=== PATIENT | female | born 1995 | race Caucasian/White ===

== ENCOUNTER 2023-12-12 07:30 | Outpatient (RCR) | payer OTHER, SELFPAY ==
--- NOTE | 2023-04-30 16:00 | OT.OP.EVAL ---
Visit Care Team Role Provider Type Evette Sethi MD Family Provider Non-Staff Primary Care Provider Specialty: Medical Address: [address] [place] [address], [id number] Email: Heriberto Ferrell DO Attending Provider Non-Staff Referring Provider Specialty: Family Practice Address: [address] [place] [address], [id number] Email: Occupational Therapy Initial Evaluation OT Outpatient Adult Evaluation Start: 05/01/23 08:51 Freq: Status: Active Protocol: Document 04/30/23 16:00 AMS (Rec: 05/01/23 09:25 AMS [id number]) General Information - Adult Plan of Care Dates 04/30/23 - 06/25/23 Insurance Information Prime; EVAL ONLY then 12 visits auth Visit Start Time 07:30 Visit Stop Time 08:15 Total Visit Minutes 45 Treatment Setting Outpatient Care Note Type Initial Evaluation Identification Confirmed Yes Identification Confirmed By Self Goals Cotton Presser Goals 1. Elida will be modified independent with execution of home exercise program utilizing provided written and visual instructions from therapist. 2. Elida will present with increased ability to participate in meaningful activities as evidenced by the followina. Elida will obtain a QuickDASH UE Outcome Measure Score of 15.00 or less. 2b. Elida will obtain a QuickDASH UE Work Module Score of 15.00 or less. 2c. Elida will obtain a QuickDASH UE Sports/Performing Arts Module Score of 50.00 or less. 2d. Elida will report ability to execute x 10 push-ups without exacerbation of pain/ discomfort of the right distal UE on 2 separate occasions (2 days per week). Assessment/Plan Treatment Assessment Elida is a 27 year-old right hand dominant female referred to outpatient OT by PCP secondary to recurrent right lateral epicondylitis. 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 Medical history is significant for removal of adenoids (2006), Lung surgery (2017). Elida indicated 1 out of 10 on Pain Assessment Grid relative to right lateral epicondyle --> distally to dorsal R wrist. QuickDASH UE Outcome Measure Score = 25.00; QuickDASH UE Outcome Measure Work Module Score = 25.00; QuickDA UE Outcome Measure Sports/Performing Arts Module Score = 68.75. Elida reported going to Urgent Care in January/ February (2022) d/t inability to move R UE; x-ray was completed and it was negative. She reported being prescribed an anti-inflammatory by Urgent Care and taking the medication for 1 week. She reportedly has iced intermittently; she denied use of tennis elbow band/strap and/or use of kinesiotape. She has a h/o rock climbing, yoga, and completing push-ups or planks (but has ceased these activities d/t aggravation of symptoms). ROM findings were as follows: 0-65 degrees active R wrist flex vs 0-65 degrees active L wrist flex; 0 -65 degrees active R wrist ext vs 0-70 degrees active L wrist ext; 0-20 degrees active R wrist RD vs 0-20 degrees active L wrist RD; 0-30 degrees active R wrist UD vs 0 -25 degrees active L wrist UD. Full bilateral elbow flexion/ extension. MMT testing findings were as follows: 5/5 MMT in all directions bilaterally (wrist flex, ext, RD, UD). Some discomfort reported R dorsal forearm distal to mid forearm --> and proximal approx 3 inches from R wrist w/ resisted wrist extension; did not indicate exacerbation of pain symptoms at R lateral epicondyle w/ supported and/or unsupported R wrist ext. 41.0# R ham curer vs 45 .0# L ham curer w/ dynamometer II testing w/ elbow in 90 degrees flex; 27.0# R ham curer vs 34.0# L ham curer w/ dynamometer II testing w/ elbow in ext. Some tenderness to palpation at R lateral epicondyle; R radial volar wrist tightness. Frequently noted to roll bilateral wrists w/ some crepitus between tasks. Elida would likely benefit from outpatient skilled OT to address pain/discomfort, environmental modifications/ education, and weakness to support Elida's ability to successfully and actively participate in meaningful activities in a variety of environments. Home Exercise Program 04/30/23 = Instructed in passive wrist flex/ext; recommended completing 1 to 2 reps w/ hold of 20 to 30 sec w / elbow in extension. Instructed in passive UD to address radial sided tightness of wrist w/ forearm in supination and elbow in 90 degrees flex based on current comfort. Rec completed 1 to 2 reps w/ hold of 20 to 30 seconds. Length of treatment (weeks) 8 Plan of Care Start Date 04/30/23 Plan of Care End Date 06/25/23 Treatment Frequency Once a Week Therapeutic Contents Active Range of Motion, Adaptive Equipment Education, Client Education,Functional Activities,Home Exercise Program,Joint Protection, Manual Therapy,Education,Self- Care,Stretching/Flexibility Activities,Therapeutic Activities,Therapeutic Exercises,Modalities Modalities As Needed,As Prescribed Additional Types of Modalities US/Heat/Ice/Cold Pack/Contrast baths/Kinesiotape
--- NOTE | 2023-05-07 16:00 | OT.OP.TRT ---
Visit Care Team Role Provider Type Evette Sethi MD Family Provider Non-Staff Primary Care Provider Specialty: Medical Address: [address] [place] [address], [id number] Email: Heriberto Ferrell DO Attending Provider Non-Staff Referring Provider Specialty: Family Practice Address: [address] [place] [address], [id number] Email: Occupational Therapy Treatment Note OT Outpatient Treatment Note - Adult Start: 05/01/23 08:51 Freq: Status: Active Protocol: Document 05/07/23 16:00 [facility] (Rec: 05/08/23 09:00 [facility] [id number]) OT Outpatient Adult Treatment Note Session Time Visit Start Time 07:30 Visit Stop Time 08:15 Total Visit Minutes 45 Visit Information Visit Number 11/02 Plan of Care Dates 04/30/23 - 06/25/23 Insurance Information Prime; EVAL ONLY then 12 visits auth Setting Treatment Setting Outpatient Care Visit Type Note Type Treatment Note General Information General Information Elida is a 27 year-old right hand dominant female referred to outpatient OT by PCP secondary to recurrent right lateral epicondylitis. 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 Medical history is significant for removal of adenoids (2006), Lung surgery (2017). - Subjective Identification Type Name Observations Elida reported participating in Nnamdi previous week; denial of aggravation of symptoms w/ the run. Patient/Caregiver Compliance with Home Good Exercise Program - Objective Objective Measurements Please refer to below for progress towards meeting established OT goals. Sales Forecast Analyst Goals 1. Elida will be modified independent with execution of home exercise program utilizing provided written and visual instructions from therapist. 2. Elida will present with increased ability to participate in meaningful activities as evidenced by the followina. Elida will obtain a QuickDASH UE Outcome Measure Score of 15.00 or less. 2b. Elida will obtain a QuickDASH UE Work Module Score of 15.00 or less. 2c. Elida will obtain a QuickDASH UE Sports/Performing Arts Module Score of 50.00 or less. 2d. Elida will report ability to execute x 10 push-ups without exacerbation of pain/ discomfort of the right distal UE on 2 separate occasions (2 days per week). - Exercises 1 Descriptor Wrist strengthening exercises. 2# DB wrist ext w/ controlled 5 sec descent into wrist flexion. 3 x 10. 2# DB wrist flex. 3 x 10. 2# DB wrist RD. 3 x 10. 2# DB wrist UD. 3 x 10. - Assessment Assessment of Improvement Denial of aggravation of symptoms w/ participation in Nnamdi. Reviewed passive distal UE stretches. US x 8 minutes; 20% duty cycle, 2.0 w /cm2 to address inflammation of extensors. Manual indicates some tightness/tenderness to palpation approx 2 inches distal to lateral epicondyle. Upgraded therapeutic exercises w/ utilization of 2# DB. Instructed in self-distraction technique; discussed importance of avoiding positions of deformity and maintaining neutral positioning of wrist. Overall, good session. Elida would likely benefit from outpatient skilled OT to address pain/discomfort, environmental modifications/ education, and weakness to support Elida's ability to successfully and actively participate in meaningful activities in a variety of environments. Home Exercise Program 05/07/23 = self-distraction technique. - Plan Therapy Recommendations Continue with Current Program, Advance per Rehabilitation Protocol
--- NOTE | 2023-05-14 12:33 | OT.OP.TRT ---
Visit Care Team Role Provider Type Evette Sethi MD Family Provider Non-Staff Primary Care Provider Specialty: Medical Address: [address] [place] [address], [id number] Email: Heriberto Ferrell DO Attending Provider Non-Staff Referring Provider Specialty: Family Practice Address: [address] [place] [address], [id number] Email: Occupational Therapy Treatment Note OT Outpatient Treatment Note - Adult Start: 05/01/23 08:51 Freq: Status: Active Protocol: Document 05/14/23 12:23 AMS (Rec: 05/14/23 12:33 AMS [id number]) OT Outpatient Adult Treatment Note Session Time Visit Start Time 07:35 Visit Stop Time 08:15 Total Visit Minutes 40 Visit Information Visit Number 12/03 Plan of Care Dates 04/30/23 - 06/25/23 Insurance Information Prime; EVAL ONLY then 12 visits auth Setting Treatment Setting Outpatient Care Visit Type Note Type Treatment Note General Information General Information Elida is a 27 year-old right hand dominant female referred to outpatient OT by PCP secondary to recurrent right lateral epicondylitis. 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 Medical history is significant for removal of adenoids (2006), Lung surgery (2017). - Subjective Identification Type Name Observations Reported discomfort of R wrist w/ execution of exercises. Patient/Caregiver Compliance with Home Good Exercise Program - Objective Objective Measurements Please refer to below for progress towards meeting established OT goals. Senior Underwriting Assistant Goals 1. Elida will be modified independent with execution of home exercise program utilizing provided written and visual instructions from therapist. 2. Elida will present with increased ability to participate in meaningful activities as evidenced by the followina. Elida will obtain a QuickDASH UE Outcome Measure Score of 15.00 or less. 2b. Elida will obtain a QuickDASH UE Work Module Score of 15.00 or less. 2c. Elida will obtain a QuickDASH UE Sports/Performing Arts Module Score of 50.00 or less. 2d. Elida will report ability to execute x 10 push-ups without exacerbation of pain/ discomfort of the right distal UE on 2 separate occasions (2 days per week). - Exercises 3 Descriptor WB at wall. Alt arm lift 1 x 5. Walk outs 1 x 5. 2 Descriptor PROM. Use of wall. Elbow in extension. Wrist/digits in extension. 1 Descriptor Wrist strengthening exercises. TB #3 wrist ext. 3 x 15. Elbow supported prox on arm rest. TB #3 wrist flex. 3 x 15. Elbow supported prox on arm rest. TB #[address] 3 x 15. Elbow supported prox on arm rest TB #3 wrist UD. 3 x 15. Use of TT to complete this exercise. - Assessment Assessment of Improvement Introduced wrist strengthening w/ use of TB; provided TB #3 for home utilization. Introduced passive wrist/digit ext at wall as an alt to self -PROM. Also introduced mod weight bearing at wall; modified approach to WB given report of R wrist discomfort and h/o of crepitus/or ' popping' of B elbows and wrists. Overall, good session. Recommend reviewing TB strengthening and utilizing controlled descent from wrist ext; recommend progressing WB exercises as able. Elida would likely benefit from outpatient skilled OT to address pain/discomfort, environmental modifications/ education, and weakness to support Elida's ability to successfully and actively participate in meaningful activities in a variety of environments. Home Exercise Program 05/14/23 = Instructed in use of wall as an alternative to for elbow ext combined w/ forearm supination and wrist/digit ext. Rec 20 to 30 sec hold. Provided w/ TB #3 for home use for wrist strengthening; recommended 3 x 15 reps w/ wrist ext, wrist flex, wrist UD, wrist RD. Instructed in strengthening into wrist UD w/ loop of TB at TT. Discussed potential use of PVC pipe for self-made 'handle'. Instructed in walk-outs w/ use of wall for modified WB; other option to stabilize feet w/ alt UE WB at wall. 05/07/23 = Self-distraction technique. - Plan Therapy Recommendations Continue with Current Program, Advance per Rehabilitation Protocol
--- NOTE | 2023-05-21 14:28 | OT.OP.TRT ---
Visit Care Team Role Provider Type Evette Sethi MD Family Provider Non-Staff Primary Care Provider Specialty: Medical Address: [address] [place] [address], [id number] Email: Heriberto Ferrell DO Attending Provider Non-Staff Referring Provider Specialty: Family Practice Address: [address] [place] [address], [id number] Email: Occupational Therapy Treatment Note OT Outpatient Treatment Note - Adult Start: 05/01/23 08:51 Freq: Status: Active Protocol: Document 05/21/23 14:14 AMS (Rec: 05/21/23 14:28 AMS [id number]) OT Outpatient Adult Treatment Note Session Time Visit Start Time 09:45 Visit Stop Time 08:15 Total Visit Minutes 30 Visit Information Visit Number 12/31 Plan of Care Dates 04/30/23 - 06/25/23 Insurance Information Prime; EVAL ONLY then 12 visits auth Setting Treatment Setting Outpatient Care Visit Type Note Type Treatment Note General Information General Information Elida is a 27 year-old right hand dominant female referred to outpatient OT by PCP secondary to recurrent right lateral epicondylitis. 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 Medical history is significant for removal of adenoids (2006), Lung surgery (2017). - Subjective Identification Type Name Observations Reported discomfort of R elbow /dorsal forearm discomfort ( evening - last Sunday). Patient/Caregiver Compliance with Home Good Exercise Program - Objective Objective Measurements Please refer to below for progress towards meeting established OT goals. Wire Spring Relay Adjuster Goals 1. Elida will be modified independent with execution of home exercise program utilizing provided written and visual instructions from therapist. 2. Elida will present with increased ability to participate in meaningful activities as evidenced by the followina. Elida will obtain a QuickDASH UE Outcome Measure Score of 15.00 or less. 2b. Elida will obtain a QuickDASH UE Work Module Score of 15.00 or less. 2c. Elida will obtain a QuickDASH UE Sports/Performing Arts Module Score of 50.00 or less. 2d. Elida will report ability to execute x 10 push-ups without exacerbation of pain/ discomfort of the right distal UE on 2 separate occasions (2 days per week). - Treatment 1 Descriptor Manual therapy. Addressing dorsal R forearm elbow extensors. Exercises 3 Descriptor WB at wall. Alt arm lift 1 x 5. Walk outs 1 x 5. 2 Descriptor PROM. Use of wall. Elbow in extension. Wrist/digits in extension. 1 Descriptor Wrist strengthening exercises. TB #3 wrist ext. 3 x 15. Elbow supported prox on arm rest. TB #3 wrist flex. 3 x 15. Elbow supported prox on arm rest. TB #[address] 3 x 15. Elbow supported prox on arm rest TB #3 wrist UD. 3 x 15. Use of TT to complete this exercise. - Assessment Assessment of Improvement Elida reported R elbow/R dorsal forearm tenderness last Sunday evening (05/14/23); this is the evening post- last treatment session in the clinic. Thus, focused on manual treatment, addressing right wrist extensors. Reviewed stretches; report of discomfort w/ addition of passive UD w/ wrist/digit ext combined w/ elbow ext and forearm supination and passive RD w/ elbow ext/forearm pronation w/ hand positioned on TT. Thus, recommended completing distal UE stretches without combination of wrist RD or UD. Reviewed frequency of treatment w/ recommended exercises. Elida would likely benefit from outpatient skilled OT to address pain/discomfort, environmental modifications/ education, and weakness to support Elida's ability to successfully and actively participate in meaningful activities in a variety of environments. Home Exercise Program 05/21/23 = Complete exercises 3 x a week, or every other day. 05/14/23 = Instructed in use of wall as an alternative to for elbow ext combined w/ forearm supination and wrist/digit ext. Rec 20 to 30 sec hold. Provided w/ TB #3 for home use for wrist strengthening; recommended 3 x 15 reps w/ wrist ext, wrist flex, wrist UD, wrist RD. Instructed in strengthening into wrist UD w/ loop of TB at TT. Discussed potential use of PVC pipe for self-made 'handle'. Instructed in walk-outs w/ use of wall for modified WB; other option to stabilize feet w/ alt UE WB at wall. 05/07/23 = Self-distraction technique. - Plan Therapy Recommendations Continue with Current Program, Advance per Rehabilitation Protocol
--- NOTE | 2023-05-28 15:24 | OT.OP.TRT ---
Visit Care Team Role Provider Type Evette Sethi MD Family Provider Non-Staff Primary Care Provider Specialty: Medical Address: [address] [place] [address], [phone] Email: Heriberto eFrrell DO Attending Provider Non-Staff Referring Provider Specialty: Family Practice Address: [address] [place] [address], [phone] Email: Occupational Therapy Treatment Note OT Outpatient Treatment Note - Adult Start: 05/01/23 08:51 Freq: Status: Active Protocol: Document 05/28/23 15:16 AMS (Rec: 05/28/23 15:23 AMS [id number]) OT Outpatient Adult Treatment Note Session Time Visit Start Time 07:37 Visit Stop Time 08:15 Total Visit Minutes 37 Visit Information Visit Number 01/31 Plan of Care Dates 04/30/23 - 06/25/23 Insurance Information Prime; EVAL ONLY then 12 visits auth Setting Treatment Setting Outpatient Care Visit Type Note Type Treatment Note General Information General Information Elida is a 28 year-old right hand dominant female referred to outpatient OT by PCP secondary to recurrent right lateral epicondylitis. 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 Medical history is significant for removal of adenoids (2006), Lung surgery (2017). - Subjective Identification Type Name Observations Denial of any pain/discomfort; report of engaging in yoga 1 x a week. Avoiding push-ups and planks. Patient/Caregiver Compliance with Home Good Exercise Program - Objective Objective Measurements Please refer to below for progress towards meeting established OT goals. Space Buyer Goals 1. Elida will be modified independent with execution of home exercise program utilizing provided written and visual instructions from therapist. 2. Elida will present with increased ability to participate in meaningful activities as evidenced by the followina. Elida will obtain a QuickDASH UE Outcome Measure Score of 15.00 or less. 2b. Elida will obtain a QuickDASH UE Work Module Score of 15.00 or less. 2c. Elida will obtain a QuickDASH UE Sports/Performing Arts Module Score of 50.00 or less. 2d. Elida will report ability to execute x 10 push-ups without exacerbation of pain/ discomfort of the right distal UE on 2 separate occasions (2 days per week). - Treatment 1 Descriptor Manual therapy. Addressing dorsal R forearm elbow extensors. Exercises 4 Descriptor Modified push-ups. Wall push-ups. Discussion re: positioning of hands on wall/ wrist position(s), as well as maintaining midline. 3 x 5 reps. Elbows tucked in 2 sets; T push-up 1 set. 2 Descriptor PROM. Use of wall. Elbow in extension. Wrist/digits in extension. 1 Descriptor Wrist strengthening exercises. TB #3 wrist ext. 3 x 15. Elbow supported prox on arm rest. TB #3 wrist flex. 3 x 15. Elbow supported prox on arm rest. TB #[address] 3 x 15. Elbow supported prox on arm rest TB #3 wrist UD. 3 x 15. Use of TT to complete this exercise. Wrist extension w/ use of dowel and elbows in 90 degrees flexion. 4# DB. 3 cycles. - Assessment Assessment of Improvement Report of engaging in yoga 1 x a week w/ only discomfort w/ upward dog; avoiding planks/ push-ups and modifying exercises. Upgraded ther ex in treatment session (introduced wall push-ups and use of dowel w/ dumbbell for strengthening). Discussion re: positioning of hands/wrists on wall w/ recommendation to complete 3 sets of 5 reps every other day (modified push -ups); discussion on making sure at midline w/ lifting of L leg to discourage reliance on L UE. Elida would likely benefit from outpatient skilled OT to address pain/discomfort, environmental modifications/ education, and weakness to support Elida's ability to successfully and actively participate in meaningful activities in a variety of environments. Home Exercise Program 05/28/23 = Every other day; modified wall push-ups. 3 x 5 reps. 05/21/23 = Complete exercises 3 x a week, or every other day. 05/14/23 = Instructed in use of wall as an alternative to for elbow ext combined w/ forearm supination and wrist/digit ext. Rec 20 to 30 sec hold. Provided w/ TB #3 for home use for wrist strengthening; recommended 3 x 15 reps w/ wrist ext, wrist flex, wrist UD, wrist RD. Instructed in strengthening into wrist UD w/ loop of TB at TT. Discussed potential use of PVC pipe for self-made 'handle'. Instructed in walk-outs w/ use of wall for modified WB; other option to stabilize feet w/ alt UE WB at wall. 05/07/23 = Self-distraction technique. - Plan Therapy Recommendations Continue with Current Program, Advance per Rehabilitation Protocol
--- NOTE | 2023-06-04 09:54 | OT.OP.TRT ---
Visit Care Team Role Provider Type Evette Sethi MD Family Provider Non-Staff Primary Care Provider Specialty: Medical Address: [address] [place] [address], [id number] Email: Heriberto Ferrell DO Attending Provider Non-Staff Referring Provider Specialty: Family Practice Address: [address] [place] [address], [id number] Email: Occupational Therapy Treatment Note OT Outpatient Treatment Note - Adult Start: 05/01/23 08:51 Freq: Status: Active Protocol: Document 06/04/23 09:48 AMS (Rec: 06/04/23 09:54 AMS [id number]) OT Outpatient Adult Treatment Note Session Time Visit Start Time 08:45 Visit Stop Time 09:15 Total Visit Minutes 30 Visit Information Visit Number 03/02 Plan of Care Dates 04/30/23 - 06/25/23 Insurance Information Prime; EVAL ONLY then 12 visits auth Setting Treatment Setting Outpatient Care Visit Type Note Type Treatment Note General Information General Information Elida is a 28 year-old right hand dominant female referred to outpatient OT by PCP secondary to recurrent right lateral epicondylitis. 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 Medical history is significant for removal of adenoids (2006), Lung surgery (2017). - Subjective Identification Type Name Identification Reconciled With Medical Record Observations Report of irritation of R elbow w/ driving; report of discomfort in R elbow w/ slight elbow flexion w/ walk- outs at TT. Patient/Caregiver Compliance with Home Good Exercise Program - Objective Objective Measurements Please refer to below for progress towards meeting established OT goals. Fdc Goals 1. Elida will be modified independent with execution of home exercise program utilizing provided written and visual instructions from therapist. 2. Elida will present with increased ability to participate in meaningful activities as evidenced by the followina. Elida will obtain a QuickDASH UE Outcome Measure Score of 15.00 or less. 2b. Elida will obtain a QuickDASH UE Work Module Score of 15.00 or less. 2c. Elida will obtain a QuickDASH UE Sports/Performing Arts Module Score of 50.00 or less. 2d. Elida will report ability to execute x 10 push-ups without exacerbation of pain/ discomfort of the right distal UE on 2 separate occasions (2 days per week). - Treatment 1 Descriptor Manual therapy. Addressing dorsal R forearm elbow extensors. Exercises 4 Descriptor Modified weight bearing; progressing to push-ups and planks. Wall push-ups. Discussion re: positioning of hands on wall/ wrist position(s), as well as maintaining midline. 3 x 10 reps. Elbows tucked in 3 sets. Table walk-outs. Hands positioned shoulder width apart on TT. 3 x 5. Exacerbation of R elbow sx w/ slight elbow flex. 1 Descriptor Wrist strengthening exercises. TB #3 wrist ext. 3 x 15. Elbow supported prox on arm rest. TB #3 wrist flex. 3 x 15. Elbow supported prox on arm rest. TB #[address] 3 x 15. Elbow supported prox on arm rest TB #3 wrist UD. 3 x 15. Use of TT to complete this exercise. N/A 06/04/23 Wrist extension w/ use of dowel and elbows in 90 degrees flexion. 4# DB. 3 cycles. - Assessment Assessment of Improvement Upgraded ther ex in treatment session; increased to 3 x 10 of wall push-ups w/ elbows tucked in and introduced modified planks w/ TT. Report of exacerbation of R elbow pain/discomfort w/ slight bilateral elbow flexion (R exacerbated) w/ TT walk-outs. Report of execution of planks w/ bilateral elbows flexed to 90 degrees. Will need to modify to support return to exercise. Elida would likely benefit from outpatient skilled OT to address pain/discomfort, environmental modifications/ education, and weakness to support Elida's ability to successfully and actively participate in meaningful activities in a variety of environments. Home Exercise Program 05/28/23 = Every other day; modified wall push-ups. 3 x 5 reps. 05/21/23 = Complete exercises 3 x a week, or every other day. 05/14/23 = Instructed in use of wall as an alternative to for elbow ext combined w/ forearm supination and wrist/digit ext. Rec 20 to 30 sec hold. Provided w/ TB #3 for home use for wrist strengthening; recommended 3 x 15 reps w/ wrist ext, wrist flex, wrist UD, wrist RD. Instructed in strengthening into wrist UD w/ loop of TB at TT. Discussed potential use of PVC pipe for self-made 'handle'. Instructed in walk-outs w/ use of wall for modified WB; other option to stabilize feet w/ alt UE WB at wall. 05/07/23 = Self-distraction technique. - Plan Therapy Recommendations Continue with Current Program, Advance per Rehabilitation Protocol Additional Therapy Recommendations Cx of last 2 scheduled appts; schedule changing
--- NOTE | 2023-06-12 14:31 | OT.OPPN ---
Current Diagnoses Lateral epicondylitis, right elbow (06/12/23) Weakness (06/12/23) OT Progress Note OT Outpatient Treatment Note - Adult Start: 05/01/23 08:51 Freq: Status: Active Protocol: Document 06/12/23 14:22 AMS (Rec: 06/12/23 14:31 AMS [id number]) OT Outpatient Adult Treatment Note Session Time Visit Start Time 13:25 Visit Stop Time 14:00 Total Visit Minutes 35 Visit Information Visit Number 04/02 Plan of Care Dates 06/12/23 - 07/17/23 Insurance Information Prime; EVAL ONLY then 12 visits auth Setting Treatment Setting Outpatient Care Visit Type Note Type Progress Note General Information General Information Elida is a 28 year-old right hand dominant female referred to outpatient OT by PCP secondary to recurrent right lateral epicondylitis. 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 Medical history is significant for removal of adenoids (2006), Lung surgery (2017). - Subjective Identification Type Name Identification Reconciled With Medical Record Observations Elida completed Pain Assessment Grid and indicated 0 out of 10. However, she has still been unable to return to floor level push-ups. Patient/Caregiver Compliance with Home Good Exercise Program - Objective Objective Measurements Please refer to below for progress towards meeting established OT goals. Halfway Goals 1. Elida will be modified independent with execution of home exercise program utilizing provided written and visual instructions from therapist. 2. Elida will present with increased ability to participate in meaningful activities as evidenced by the followina. Elida will obtain a QuickDASH UE Outcome Measure Score of 15.00 or less. 2b. Elida will obtain a QuickDASH UE Work Module Score of 15.00 or less. 2c. Elida will obtain a QuickDASH UE Sports/Performing Arts Module Score of 50.00 or less. 2d. Eliad will report ability to execute x 10 push-ups without exacerbation of pain/ discomfort of the right distal UE on 2 separate occasions (2 days per week). - Treatment 1 Descriptor Manual therapy. Addressing dorsal R forearm elbow extensors. Exercises 1 Descriptor Wrist strengthening exercises. TB #3 wrist ext. 3 x 15. Elbow extended. TB #3 wrist flex. 3 x 15. Elbow extended. TB #[address] 3 x 15. Elbow extended. TB #3 wrist ext. 3 x 15. Elbow supported prox on arm rest. TB #3 wrist flex. 3 x 15. Elbow supported prox on arm rest. TB #[address] 3 x 15. Elbow supported prox on arm rest. TB #3 wrist UD. 3 x 15. Use of TT to complete this exercise. Elbow extended. N/A 06/04/23 Wrist extension w/ use of dowel and elbows in 90 degrees flexion. 4# DB. 3 cycles. - Assessment Assessment of Improvement Elida has made some progress with outpatient OT over the last certification period; she is presenting with a reduction in pain/discomfort ( reduced from 1 --> 0/no pain) and therapist has been able to advance therapeutic exercises /activities completed in treatment session and home exercise program. Despite ability to progress exercises/ activities, Elida has still been unable to complete push- ups at floor level and is currently executing a modified version at the wall. Thus, continued outpatient OT is recommended to support Elida's return to meaningful activities, including planks/ floor push-ups. Based on feedback from outpatient clinic insurance special agent, Elida was notified of need to contact PCP to request new insurance authorization. Home Exercise Program 06/12/23 = Wrist exercises w/ elbow extended. 3 x 15 reps. 05/28/23 = Every other day; modified wall push-ups. 3 x 5 reps. 05/21/23 = Complete exercises 3 x a week, or every other day. 05/14/23 = Instructed in use of wall as an alternative to for elbow ext combined w/ forearm supination and wrist/digit ext. Rec 20 to 30 sec hold. Provided w/ TB #3 for home use for wrist strengthening; recommended 3 x 15 reps w/ wrist ext, wrist flex, wrist UD, wrist RD. Instructed in strengthening into wrist UD w/ loop of TB at TT. Discussed potential use of PVC pipe for self-made 'handle'. Instructed in walk-outs w/ use of wall for modified WB; other option to stabilize feet w/ alt UE WB at wall. 05/07/23 = Self-distraction technique. - Plan Comment 5 weeks Frequency of Treatment Once a Week Therapeutic Contents Active Range of Motion, Adaptive Equipment Education, Client Education,Functional Activities,Home Exercise Program,Joint Protection, Manual Therapy,Education, Neurodevelopment Treatment, Neuromuscular Re-Education, Self-Care,Therapeutic Activities,Therapeutic Exercises,Modalities Modalities As Needed,As Prescribed Additional Types of Modalities Heat/Ice/Paraffin/Ultrasound If you are in agreement with this Plan of Care, please return a signed and dated copy. I have reviewed this Plan of Care and certify that the skilled therapy services above are required to meet the patient?s needs. Physician Signature Date Printed Name and Credentials Clinical Instructor Signature Printed Name and Credentials
--- NOTE | 2023-07-25 11:05 | OT.OPPOC ---
Physical, Occupational & Speech Therapy At [facility] Elida Roth [id number] 1995 Visit Care Team Role Provider Type Evette Sethi MD Family Provider Non-Staff Primary Care Provider Address: [address] [place] [address], [id number] Heriberto Ferrell DO Attending Provider Non-Staff Referring Provider Address: [address] [place] [address], [id number] Occupational Therapy Plan of Care OT Outpatient Adult Evaluation Start: 05/01/23 08:51 Freq: Status: Active Protocol: Document 04/30/23 16:00 AMS (Rec: 05/01/23 09:25 AMS [id number]) General Information - Adult Visit Information Plan of Care Dates 04/30/23 - 06/25/23 Insurance Information Prime; EVAL ONLY then 12 visits auth Session Time Visit Start Time 07:30 Visit Stop Time 08:15 Total Visit Minutes 45 Setting Treatment Setting Outpatient Care Visit Type Note Type Initial Evaluation Identification Identification Confirmed Yes Identification Confirmed By Self Goals [employer] Goals Intermediate Goals 1. Elida will be modified independent with execution of home exercise program utilizing provided written and visual instructions from therapist. 2. Elida will present with increased ability to participate in meaningful activities as evidenced by the followina. Elida will obtain a QuickDASH UE Outcome Measure Score of 15.00 or less. 2b. Elida will obtain a QuickDASH UE Work Module Score of 15.00 or less. 2c. Elida will obtain a QuickDASH UE Sports/Performing Arts Module Score of 50.00 or less. 2d. Elida will report ability to execute x 10 push-ups without exacerbation of pain/ discomfort of the right distal UE on 2 separate occasions (2 days per week). Assessment/Plan Assessment Treatment Assessment Elida is a 27 year-old right hand dominant female referred to outpatient OT by PCP secondary to recurrent right lateral epicondylitis. 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 Medical history is significant for removal of adenoids (2006), Lung surgery (2017). Elida indicated 1 out of 10 on Pain Assessment Grid relative to right lateral epicondyle --> distally to dorsal R wrist. QuickDASH UE Outcome Measure Score = 25.00; QuickDASH UE Outcome Measure Work Module Score = 25.00; QuickDASH UE Outcome Measure Sports/Performing Arts Module Score = 68.75. Elida reported going to Urgent Care in February (2022) d/t inability to move R UE; x-ray was completed and it was negative. She reported being prescribed an anti-inflammatory by Urgent Care and taking the medication for 1 week. She reportedly has iced intermittently; she denied use of tennis elbow band/strap and/or use of kinesiotape. She has a h/o rock climbing, yoga, and completing push-ups or planks (but has ceased these activities d/t aggravation of symptoms). ROM findings were as follows: 0-65 degrees active R wrist flex vs 0-65 degrees active L wrist flex; 0 -65 degrees active R wrist ext vs 0-70 degrees active L wrist ext; 0-20 degrees active R wrist RD vs 0-20 degrees active L wrist RD; 0-30 degrees active R wrist UD vs 0 -25 degrees active L wrist UD. Full bilateral elbow flexion/ extension. MMT testing findings were as follows: 5/5 MMT in all directions bilaterally (wrist flex, ext, RD, UD). Some discomfort reported R dorsal forearm distal to mid forearm --> and proximal approx 3 inches from R wrist w/ resisted wrist extension; did not indicate exacerbation of pain symptoms at R lateral epicondyle w/ supported and/or unsupported R wrist ext. 41.0# R picture painter vs 45 .0# L picture painter w/ dynamometer II testing w/ elbow in 90 degrees flex; 27.0# R picture painter vs 34.0# L picture painter w/ dynamometer II testing w/ elbow in ext. Some tenderness to palpation at R lateral epicondyle; R radial volar wrist tightness. Frequently noted to roll bilateral wrists w/ some crepitus between tasks. Elida would likely benefit from outpatient skilled OT to address pain/discomfort, environmental modifications/ education, and weakness to support Elida's ability to successfully and actively participate in meaningful activities in a variety of environments. Home Exercise Program 7/10/23 = Instructed in passive wrist flex/ext; recommended completing 1 to 2 reps w/ hold of 20 to 30 sec w / elbow in extension. Instructed in passive UD to address radial sided tightness of wrist w/ forearm in supination and elbow in 90 degrees flex based on current comfort. Rec completed 1 to 2 reps w/ hold of 20 to 30 seconds. Plan Length of treatment (weeks) 8 Plan of Care Start Date 04/30/23 Plan of Care End Date 06/25/23 Treatment Frequency Once a Week Therapeutic Contents Active Range of Motion, Adaptive Equipment Education, Client Education,Functional Activities,Home Exercise Program,Joint Protection, Manual Therapy,Education,Self- Care,Stretching/Flexibility Activities,Therapeutic Activities,Therapeutic Exercises,Modalities Modalities As Needed,As Prescribed Additional Types of Modalities US/Heat/Ice/Cold Pack/Contrast baths/Kinesiotape Functional Wrist/Hand Scan Hand Side Sensory Assessment Sensory Profile2 OT Outpatient Treatment Note - Adult Start: 05/01/23 08:51 Freq: Status: Active Protocol: Document 07/25/23 10:52 AMS (Rec: 07/25/23 11:05 AMS [id number]) OT Outpatient Adult Treatment Note Session Time Visit Start Time 07:35 Visit Stop Time 08:15 Total Visit Minutes 40 Visit Information Visit Number 05/02 Plan of Care Dates 07/17/23 - 08/28/23 Insurance Information Prime; EVAL ONLY then 12 visits auth Setting Treatment Setting Outpatient Care Visit Type Note Type Progress Note General Information General Information Elida is a 28 year-old right hand dominant female referred to outpatient OT by PCP secondary to recurrent right lateral epicondylitis. 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 Medical history is significant for removal of adenoids (2006), Lung surgery (2017). - Subjective Identification Type Name Identification Reconciled With Medical Record Observations Elida reported that she is still unable to do floor push- ups and most recently, completed wall push-ups w/ aggravation of symptoms previous Sunday, 07/20. 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 She reported that she primarily utilizes grading pens which do not have any resistance when applied to paper. Patient/Caregiver Compliance with Home Good Exercise Program - Objective Objective Measurements Please refer to below for progress towards meeting established OT goals. Intermediate Goals 1. Elida will be modified independent with execution of home exercise program utilizing provided written and visual instructions from therapist. 2. Elida will present with increased ability to participate in meaningful activities as evidenced by the followina. Elida will obtain a QuickDASH UE Outcome Measure Score of 15.00 or less. 2b. Elida will obtain a QuickDASH UE Work Module Score of 15.00 or less. 2c. Elida will obtain a QuickDASH UE Sports/Performing Arts Module Score of 50.00 or less. 2d. Elida will report ability to execute x 10 push-ups without exacerbation of pain/ discomfort of the right distal UE on 2 separate occasions (2 days per week). - Exercises 4 Descriptor Modified weight bearing; progressing to push-ups and planks. Wall push-ups. Discussion re: positioning of hands on wall/ wrist position(s), as well as maintaining midline. 3 x 10 reps. Elbows tucked in 3 sets. Table walk-outs. Hands positioned shoulder width apart on TT. 3 x 5. Exacerbation of R elbow sx w/ slight elbow flex. 2 Descriptor Wrist ext w/ TT tap -> elbow flex w/ wrist ext w/ use of 2. 2# weighted spherical ball. 2 x 15 repetitions. 1 Descriptor Wrist strengthening exercises. TB #2 wrist ext. 3 x 15. Elbow supported prox on arm rest. TB #2 wrist flex. 3 x 15. Elbow supported prox on arm rest. TB #[address] 3 x 15. Elbow supported prox on arm rest. TB #2 wrist UD. 3 x 15. Use of TT to complete this exercise. Elbow extended. N/A 07/25/23 TB #3 wrist ext. 3 x 15. Elbow extended. TB #3 wrist flex. 3 x 15. Elbow extended. TB #[address] 3 x 15. Elbow extended. N/A 06/04/23 Wrist extension w/ use of dowel and elbows in 90 degrees flexion. 4# DB. 3 cycles. - Assessment Assessment of Improvement Elida did not make progress over this last certification period; break in treatment occurred. There was a decline and need for reduction of resistance w/ wrist strengthening exercises; TB#2 was provided and recommended for execution of home exercise program vs utilization of TB #3. Thus, continued outpatient OT is recommended to support Elida's return to meaningful activities, including planks/ floor push-ups. Home Exercise Program 07/25/23 = Provision of TB #2 was provided. Rec for use w/ wrist strengthening exercises. Rec trialing incline/slant board w/ written task completion. 06/12/23 = Wrist exercises w/ elbow extended. 3 x 15 reps. 05/28/23 = Every other day; modified wall push-ups. 3 x 5 reps. 05/21/23 = Complete exercises 3 x a week, or every other day. 05/14/23 = Instructed in use of wall as an alternative to for elbow ext combined w/ forearm supination and wrist/digit ext. Rec 20 to 30 sec hold. Provided w/ TB #3 for home use for wrist strengthening; recommended 3 x 15 reps w/ wrist ext, wrist flex, wrist UD, wrist RD. Instructed in strengthening into wrist UD w/ loop of TB at TT. Discussed potential use of PVC pipe for self-made 'handle'. Instructed in walk-outs w/ use of wall for modified WB; other option to stabilize feet w/ alt UE WB at wall. 05/07/23 = Self-distraction technique. - Plan Comment 6 weeks Frequency of Treatment Once a Week Therapeutic Contents Active Range of Motion, Adaptive Equipment Education, Client Education,Functional Activities,Home Exercise Program,Joint Protection, Manual Therapy,Education, Neurodevelopment Treatment, Neuromuscular Re-Education, Self-Care,Therapeutic Activities,Therapeutic Exercises,Modalities Modalities As Needed,As Prescribed Additional Types of Modalities Heat/Ice/Paraffin/Ultrasound Electronically Signed by: Diana Huntley OT 07/25/23 4923 If you are in agreement with this Plan of Care, please return a signed and dated copy. I have reviewed this Plan of Care and certify that the skilled therapy services above are required to meet the patient?s needs. Physician Signature Date Printed Name and Credentials Clinical Instructor Signature Printed Name and Credentials
--- NOTE | 2023-08-01 08:19 | OT.OP.TRT ---
Visit Care Team Role Provider Type Evette Sethi MD Family Provider Non-Staff Primary Care Provider Specialty: Medical Address: [address] [place] [address], [id number] Email: Heriberto Ferrell DO Attending Provider Non-Staff Referring Provider Specialty: Family Practice Address: [address] [place] [address], [id number] Email: Occupational Therapy Treatment Note OT Outpatient Treatment Note - Adult Start: 05/01/23 08:51 Freq: Status: Active Protocol: Document 08/01/23 08:11 AMS (Rec: 08/01/23 08:19 AMS [id number]) OT Outpatient Adult Treatment Note Session Time Visit Start Time 07:30 Visit Stop Time 08:10 Total Visit Minutes 40 Visit Information Visit Number 06/02 Plan of Care Dates 07/17/23 - 08/28/23 Insurance Information Prime; EVAL ONLY then 12 visits auth Setting Treatment Setting Outpatient Care Visit Type Note Type Treatment Note General Information General Information Elida is a 28 year-old right hand dominant female referred to outpatient OT by PCP secondary to recurrent right lateral epicondylitis. 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 Medical history is significant for removal of adenoids (2006), Lung surgery (2017). - Subjective Identification Type Name Identification Reconciled With Medical Record Observations Elida reported that she has not tried wall push-ups. Elida reported that she was given a wrist brace to wear at night; based on description, brace was intended to discourage compression of the median nerve w/ wrist flexion and she stopped wearing it given discomfort and ability to utilize pillow to position UE at night when sleeping. Patient/Caregiver Compliance with Home Good Exercise Program - Objective Objective Measurements Please refer to below for progress towards meeting established OT goals. Assisted Goals 1. Elida will be modified independent with execution of home exercise program utilizing provided written and visual instructions from therapist. 2. Elida will present with increased ability to participate in meaningful activities as evidenced by the followina. Elida will obtain a QuickDASH UE Outcome Measure Score of 15.00 or less. 2b. Elida will obtain a QuickDASH UE Work Module Score of 15.00 or less. 2c. Elida will obtain a QuickDA UE Sports/Performing Arts Module Score of 50.00 or less. 2d. Elida will report ability to execute x 10 push-ups without exacerbation of pain/ discomfort of the right distal UE on 2 separate occasions (2 days per week). - Exercises 4 Descriptor Passive wrist stretches. Elbow ext w/ forearm supination w/ wrist ext and elbow ext w/ forearm pronation w/ wrist flex. Hold 20 sec. x 1 rep each exercise. Elbow near full ext w/ passive wrist RD/UD. Hold 20 sec. x 1 rep each exercise. 3 Descriptor Wrist stabilization exercises. Weight shift L <-> R at wall. 1 x 10. Modified wall push-ups. Decreased range of motion. 3 x 10. 2 Descriptor Wrist strengthening exercises. Wrist ext w/ TT tap -> elbow flex w/ wrist ext w/ use of 2. 2# weighted spherical ball. 3 x 15 reps. Underhand catch. 2.2# weighted spherical ball. 3 x 15 reps. Overhand catch. 2.2# weighted spherical ball. 3 x 15 reps. Alt underhand/overhand catch. 2.2# weighted spherical ball. 3 x 15 reps. 1 Descriptor Wrist strengthening exercises. TB #2 wrist ext. 3 x 15. Elbow supported prox on arm rest. TB #2 wrist flex. 3 x 15. Elbow supported prox on arm rest. TB #[address] 3 x 15. Elbow supported prox on arm rest. TB #2 wrist UD. 3 x 15. Use of TT to complete this exercise. Elbow extended. N/A 07/25/23 TB #3 wrist ext. 3 x 15. Elbow extended. TB #3 wrist flex. 3 x 15. Elbow extended. TB #[address] 3 x 15. Elbow extended. N/A 06/04/23 Wrist extension w/ use of dowel and elbows in 90 degrees flexion. 4# DB. 3 cycles. - Assessment Assessment of Improvement Modified wall push-ups to reduce active elbow range of motion; able to tolerate 3 x 10 without c/o pain/discomfort . Elida reported using pillow to support distal UE; has R wrist brace available at home for use. Will utilize w/ writing tasks. Continued outpatient OT is recommended to support Elida's return to meaningful activities, including planks/ floor push-ups. Home Exercise Program 08/01/23 = Trial use of wrist brace w/ written tasks; reduce amount of ROM w/ wall push- ups and avoid locking into extension. 07/25/23 = Provision of TB #2 was provided. Rec for use w/ wrist strengthening exercises. Rec trialing incline/slant board w/ written task completion. 06/12/23 = Wrist exercises w/ elbow extended. 3 x 15 reps. 05/28/23 = Every other day; modified wall push-ups. 3 x 5 reps. 05/21/23 = Complete exercises 3 x a week, or every other day. 05/14/23 = Instructed in use of wall as an alternative to for elbow ext combined w/ forearm supination and wrist/digit ext. Rec 20 to 30 sec hold. Provided w/ TB #3 for home use for wrist strengthening; recommended 3 x 15 reps w/ wrist ext, wrist flex, wrist UD, wrist RD. Instructed in strengthening into wrist UD w/ loop of TB at TT. Discussed potential use of PVC pipe for self-made 'handle'. Instructed in walk-outs w/ use of wall for modified WB; other option to stabilize feet w/ alt UE WB at wall. 05/07/23 = Self-distraction technique. - Plan Therapy Recommendations Continue with Current Program, Advance per Rehabilitation Protocol
--- NOTE | 2023-08-08 11:46 | OT.OP.TRT ---
Visit Care Team Role Provider Type Evette Sethi MD Family Provider Non-Staff Primary Care Provider Specialty: Medical Address: [address] [place] [address], [phone] Email: Heriberto Ferrell DO Attending Provider Non-Staff Referring Provider Specialty: Family Practice Address: [address] [place] [address], [phone] Email: Occupational Therapy Treatment Note OT Outpatient Treatment Note - Adult Start: 05/01/23 08:51 Freq: Status: Active Protocol: Document 08/08/23 11:36 AMS (Rec: 08/08/23 11:46 AMS [id number]) OT Outpatient Adult Treatment Note Session Time Visit Start Time 07:30 Visit Stop Time 08:15 Total Visit Minutes 45 Visit Information Visit Number 07/03 Plan of Care Dates 07/17/23 - 08/28/23 Insurance Information Prime; EVAL ONLY then 12 visits auth Setting Treatment Setting Outpatient Care Visit Type Note Type Treatment Note General Information General Information Elida is a 28 year-old right hand dominant female referred to outpatient OT by PCP secondary to recurrent right lateral epicondylitis. 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 Medical history is significant for removal of adenoids (2006), Lung surgery (2017). - Subjective Identification Type Name Identification Reconciled With Medical Record Observations Elida reported pain/discomfort of R elbow following last treatment; report of doing exercises on Sunday w/ vacuuming on Sunday which led to aggravation. Pain/ discomfort of wrist while executing forward trunk flex rows. Report of wearing R wrist brace while vacuuming and completing other activities. (-) icing and (-) taking or oral anti- inflammatory medication. Patient/Caregiver Compliance with Home Good Exercise Program - Objective Objective Measurements Please refer to below for progress towards meeting established OT goals. Precinct Commanding Officer Goals 1. Elida will be modified independent with execution of home exercise program utilizing provided written and visual instructions from therapist. 2. Elida will present with increased ability to participate in meaningful activities as evidenced by the followina. Elida will obtain a QuickDASH UE Outcome Measure Score of 15.00 or less. 2b. Elida will obtain a QuickDASH UE Work Module Score of 15.00 or less. 2c. Elida will obtain a QuickDASH UE Sports/Performing Arts Module Score of 50.00 or less. 2d. Elida will report ability to execute x 10 push-ups without exacerbation of pain/ discomfort of the right distal UE on 2 separate occasions (2 days per week). - Treatment 2 Descriptor Ultrasound. 20% duty cycle. 2. 0 w/cm2. Addressing inflammation. Skin intact pre- and post- treatment. 1 Descriptor Manual therapy. Addressing dorsal R forearm elbow extensors. Exercises 5 Descriptor UEB x 5 minutes. Seated. Seat positioned to avoid full R elbow ext based on feedback. 4 Descriptor Passive wrist stretches. Elbow ext w/ forearm supination w/ wrist ext and elbow ext w/ forearm pronation w/ wrist flex. Hold 20 sec. x 1 rep each exercise. Elbow near full ext w/ passive wrist RD/UD. Hold 20 sec. x 1 rep each exercise. 3 Descriptor Wrist stabilization exercises. Weight shift L <-> R at wall. 1 x 10. Modified wall push-ups. Decreased range of motion. 3 x 10. 2 Descriptor Wrist strengthening exercises. Wrist ext w/ TT tap -> elbow flex w/ wrist ext w/ use of 2. 2# weighted spherical ball. 3 x 15 reps. Underhand catch. 2.2# weighted spherical ball. 3 x 15 reps. Overhand catch. 2.2# weighted spherical ball. 3 x 15 reps. Alt underhand/overhand catch. 2.2# weighted spherical ball. 3 x 15 reps. 1 Descriptor Wrist strengthening exercises. TB #2 wrist ext. 3 x 15. Elbow supported prox on arm rest. TB #2 wrist flex. 3 x 15. Elbow supported prox on arm rest. TB #[address] 3 x 15. Elbow supported prox on arm rest. TB #2 wrist UD. 3 x 15. Use of TT to complete this exercise. Some elbow flexion. N/A 07/25/23 TB #3 wrist ext. 3 x 15. Elbow extended. TB #3 wrist flex. 3 x 15. Elbow extended. TB #[address] 3 x 15. Elbow extended. N/A 06/04/23 Wrist extension w/ use of dowel and elbows in 90 degrees flexion. 4# DB. 3 cycles. - Assessment Assessment of Improvement Increased utilization of R wrist brace in the home w/ engagement in various activities. Given report of aggravation of symptoms post- previous treatment session, reduced number of resistance exercises completed in treatment session and provided US treatment to R elbow/ lateral/site of attachment for extensors. Rec considering eccentric wrist extensor exercises. Continued outpatient OT is recommended to support Elida's return to meaningful activities, including planks/ floor push-ups. Home Exercise Program 08/01/23 = Trial use of wrist brace w/ written tasks; reduce amount of ROM w/ wall push- ups and avoid locking into extension. 07/25/23 = Provision of TB #2 was provided. Rec for use w/ wrist strengthening exercises. Rec trialing incline/slant board w/ written task completion. 06/12/23 = Wrist exercises w/ elbow extended. 3 x 15 reps. 05/28/23 = Every other day; modified wall push-ups. 3 x 5 reps. 05/21/23 = Complete exercises 3 x a week, or every other day. 05/14/23 = Instructed in use of wall as an alternative to for elbow ext combined w/ forearm supination and wrist/digit ext. Rec 20 to 30 sec hold. Provided w/ TB #3 for home use for wrist strengthening; recommended 3 x 15 reps w/ wrist ext, wrist flex, wrist UD, wrist RD. Instructed in strengthening into wrist UD w/ loop of TB at TT. Discussed potential use of PVC pipe for self-made 'handle'. Instructed in walk-outs w/ use of wall for modified WB; other option to stabilize feet w/ alt UE WB at wall. 05/07/23 = Self-distraction technique. - Plan Therapy Recommendations Continue with Current Program, Advance per Rehabilitation Protocol
--- NOTE | 2023-08-15 09:32 | OT.OP.TRT ---
Visit Care Team Role Provider Type Evette Sethi MD Family Provider Non-Staff Primary Care Provider Specialty: Medical Address: [address] [place] [address], [phone] Email: Heriberto Ferrell DO Attending Provider Non-Staff Referring Provider Specialty: Family Practice Address: [address] [place] [address], [phone] Email: Occupational Therapy Treatment Note OT Outpatient Treatment Note - Adult Start: 05/01/23 08:51 Freq: Status: Active Protocol: Document 08/15/23 09:24 AMS (Rec: 08/15/23 09:31 [facility] [id number]) OT Outpatient Adult Treatment Note Session Time Visit Start Time 07:35 Visit Stop Time 08:15 Total Visit Minutes 40 Visit Information Visit Number 08/02 Plan of Care Dates 07/17/23 - 08/28/23 Insurance Information Prime; EVAL ONLY then 12 visits auth Setting Treatment Setting Outpatient Care Visit Type Note Type Treatment Note General Information General Information Elida is a 28 year-old right hand dominant female referred to outpatient OT by PCP secondary to recurrent right lateral epicondylitis. 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 Medical history is significant for removal of adenoids (2006), Lung surgery (2017). - Subjective Identification Type Name Identification Reconciled With Medical Record Observations Reported increased use of R wrist brace (primarily in the home); modified tricep dips w/ execution w/ hands fisted. Report of discomfort w/ resisted sh flex. Utilizing computer at school w/ standard mouse versus laptop at home w / mouse square. Patient/Caregiver Compliance with Home Good Exercise Program - Objective Objective Measurements Please refer to below for progress towards meeting established OT goals. Crossing Watchman Goals 1. Elida will be modified independent with execution of home exercise program utilizing provided written and visual instructions from therapist. 2. Elida will present with increased ability to participate in meaningful activities as evidenced by the followina. Elida will obtain a QuickDASH UE Outcome Measure Score of 15.00 or less. 2b. Elida will obtain a QuickDASH UE Work Module Score of 15.00 or less. 2c. Elida will obtain a QuickDASH UE Sports/Performing Arts Module Score of 50.00 or less. 2d. Elida will report ability to execute x 10 push-ups without exacerbation of pain/ discomfort of the right distal UE on 2 separate occasions (2 days per week). - Treatment 2 Descriptor Ultrasound. 20% duty cycle. 2. 0 w/cm2. Addressing inflammation. Skin intact pre- and post- treatment. Exercises 6 Descriptor Eccentric strengthening. Red flex bar. 1 x 15. 5 Descriptor UEB x 7 minutes. Seated ( avoidance of full elbow extension). x 5 minutes forwards direction ; x 2 minutes backwards direction. 4 Descriptor Passive wrist stretches. Elbow ext w/ forearm supination w/ wrist ext and elbow ext w/ forearm pronation w/ wrist flex. Hold 20 sec. x 1 rep each exercise. Elbow near full ext w/ passive wrist RD/UD. Hold 20 sec. x 1 rep each exercise. 2 Descriptor Wrist strengthening exercises. Wrist ext w/ TT tap -> elbow flex w/ wrist ext w/ use of 2. 2# weighted spherical ball. 3 x 15 reps. Underhand catch. 2.2# weighted spherical ball. 3 x 15 reps. Overhand catch. 2.2# weighted spherical ball. 3 x 15 reps. N/A 08/15/23 Alt underhand/overhand catch. 2.2# weighted spherical ball. 3 x 15 reps. 1 Descriptor Wrist strengthening exercises. TB #2 wrist ext. 3 x 15. Elbow supported prox on arm rest. TB #2 wrist flex. 3 x 15. Elbow supported prox on arm rest. TB #[address] 3 x 15. Elbow supported prox on arm rest. TB #2 wrist UD. 3 x 15. Use of TT to complete this exercise. Some elbow flexion. N/A 07/25/23 TB #3 wrist ext. 3 x 15. Elbow extended. TB #3 wrist flex. 3 x 15. Elbow extended. TB #[address] 3 x 15. Elbow extended. N/A 06/04/23 Wrist extension w/ use of dowel and elbows in 90 degrees flexion. 4# DB. 3 cycles. - Assessment Assessment of Improvement Introduced red flex bar eccentric strengthening; sundeep 1 x 15; rec increasing sets as tolerated. Rec focusing on eccentric strengthening w/ wrist ext utilizing TB #2 in the home; discussed progression to execution of wrist strengthening exercises near full elbow extension. Rec re-assessing strength (mural artist, wrist strength, ROM). Rec also advancing eccentric wrist extensor exercises. Continued outpatient OT is recommended to support Elida's return to meaningful activities, including planks/ floor push-ups. Home Exercise Program 08/01/23 = Trial use of wrist brace w/ written tasks; reduce amount of ROM w/ wall push- ups and avoid locking into extension. 07/25/23 = Provision of TB #2 was provided. Rec for use w/ wrist strengthening exercises. Rec trialing incline/slant board w/ written task completion. 06/12/23 = Wrist exercises w/ elbow extended. 3 x 15 reps. 05/28/23 = Every other day; modified wall push-ups. 3 x 5 reps. 05/21/23 = Complete exercises 3 x a week, or every other day. 05/14/23 = Instructed in use of wall as an alternative to for elbow ext combined w/ forearm supination and wrist/digit ext. Rec 20 to 30 sec hold. Provided w/ TB #3 for home use for wrist strengthening; recommended 3 x 15 reps w/ wrist ext, wrist flex, wrist UD, wrist RD. Instructed in strengthening into wrist UD w/ loop of TB at TT. Discussed potential use of PVC pipe for self-made 'handle'. Instructed in walk-outs w/ use of wall for modified WB; other option to stabilize feet w/ alt UE WB at wall. 05/07/23 = Self-distraction technique. - Plan Therapy Recommendations Continue with Current Program, Advance per Rehabilitation Protocol
--- NOTE | 2023-08-22 13:49 | OT.OP.TRT ---
Visit Care Team Role Provider Type Evette Sethi MD Family Provider Non-Staff Primary Care Provider Specialty: Medical Address: [address] [place] [address], [phone] Email: Heriberto Ferrell DO Attending Provider Non-Staff Referring Provider Specialty: Family Practice Address: [address] [place] [address], [phone] Email: Occupational Therapy Treatment Note OT Outpatient Treatment Note - Adult Start: 05/01/23 08:51 Freq: Status: Active Protocol: Document 08/22/23 13:30 AMS (Rec: 08/22/23 13:49 AMS [id number]) OT Outpatient Adult Treatment Note Session Time Visit Start Time 07:35 Visit Stop Time 08:15 Total Visit Minutes 40 Visit Information Visit Number 09/02 Plan of Care Dates 07/17/23 - 08/28/23 Insurance Information Prime; EVAL ONLY then 12 visits auth Setting Treatment Setting Outpatient Care Visit Type Note Type Treatment Note General Information General Information Elida is a 28 year-old right hand dominant female referred to outpatient OT by PCP secondary to recurrent right lateral epicondylitis. 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 Medical history is significant for removal of adenoids (2006), Lung surgery (2017). - Subjective Identification Type Name Identification Reconciled With Medical Record Observations Continued use of R wrist brace (primarily in the home); modified tricep dips w/ execution w/ hands fisted. Report of discomfort w/ resisted sh flex. Utilizing computer at school w/ standard mouse versus laptop at home w / mouse square. Denied recent trial of push-ups; indicated that she will likely execute them with fists. Indication of 1 out of 10 on Pain Assessment Grid relative to right lateral elbow. Patient/Caregiver Compliance with Home Good Exercise Program Comment utilizing TB #2; - Objective Objective Measurements Please refer to below for progress towards meeting established OT goals: 08/22/23 = Indication of 1 out of 10 on Pain Assessment Grid relative to right lateral elbow. Assisted Goals 1. Elida will be modified independent with execution of home exercise program utilizing provided written and visual instructions from therapist. 2. Elida will present with increased ability to participate in meaningful activities as evidenced by the followina. Elida will obtain a QuickDASH UE Outcome Measure Score of 15.00 or less. = 75% met; Score = 18.18 ( versus initial 25.00) 2b. Elida will obtain a QuickDASH UE Sports/Performing Arts Module Score of 50.00 or less. 2c. Elida will report ability to execute x 10 push-ups without exacerbation of pain/ discomfort of the right distal UE on 2 separate occasions (2 days per week). GOALS MET Elida will obtain a QuickDASH UE Work Module Score of 15.00 or less. *MET 08/22/23 = Score = 12.50 - Exercises 6 Descriptor Eccentric strengthening. Red flex bar. 1 x 15. 5 Descriptor UEB x 6 minutes. Forwards direction. Seated (avoidance of full elbow extension). 4 Descriptor Passive wrist stretches. Elbow ext w/ forearm supination w/ wrist ext and elbow ext w/ forearm pronation w/ wrist flex. Hold 20 sec. x 1 rep each exercise. Elbow near full ext w/ passive wrist RD/UD. Hold 20 sec. x 1 rep each exercise. 2 Descriptor Wrist strengthening exercises. Wrist ext w/ TT tap -> elbow flex w/ wrist ext w/ use of 2. 2# weighted spherical ball. 3 x 15 reps. Underhand catch. 2.2# weighted spherical ball. 3 x 15 reps. Overhand catch. 2.2# weighted spherical ball. 3 x 15 reps. N/A 08/15/23 Alt underhand/overhand catch. 2.2# weighted spherical ball. 3 x 15 reps. 1 Descriptor Wrist strengthening exercises. TB #2 wrist ext. 3 x 15. Elbow supported prox on arm rest. TB #2 wrist flex. 3 x 15. Elbow supported prox on arm rest. TB #[address] 3 x 15. Elbow supported prox on arm rest. TB #2 wrist UD. 3 x 15. Use of TT to complete this exercise. Some elbow flexion. N/A 07/25/23 TB #3 wrist ext. 3 x 15. Elbow extended. TB #3 wrist flex. 3 x 15. Elbow extended. TB #[address] 3 x 15. Elbow extended. N/A 06/04/23 Wrist extension w/ use of dowel and elbows in 90 degrees flexion. 4# DB. 3 cycles. - Assessment Assessment of Improvement Decrease in QuickDASH UE Outcome Measure Scores since time of initial evaluation; met short term goal relative to QuickDASH Work Module Score . Pain/discomfort was identified as 1 out of 10 on pain scale and is isolated at R lateral epicondyle based on results of Pain Assessment Grid. (-) change in active R wrist ext (0-65 degrees pre- stretch and 0-67 degrees post- wrist stretch held for 20 sec ). Slight increase in R belt line feeder strength, although, L belt line feeder strength continues to be greater w/ elbow in 90 degrees flexion w/ dynamometer II. Mild increases in bilateral belt line feeder strength w/ elbow near full ext w/ dynamometer II, w/ L belt line feeder strength greater than L belt line feeder strength. Rec cont use of TB #2 for strengthening at this time (w/ focus on eccentric strengthening) w/ consideration of use of DB for modified push-ups as an alternative to formation of fists. Elida was notified of need to contact PCP d/t insurance limitations; will be reducing frequency to 1 x every other week or every 2 weeks. Also discussed return to PCP to explore less conservative measures vs referral to upper extremity deaf/hard of hearing specialist. Home Exercise Program 08/22/23 = DB push-ups vs fisting hands w/ push-ups. 08/01/23 = Trial use of wrist brace w/ written tasks; reduce amount of ROM w/ wall push- ups and avoid locking into extension. 07/25/23 = Provision of TB #2 was provided. Rec for use w/ wrist strengthening exercises. Rec trialing incline/slant board w/ written task completion. 06/12/23 = Wrist exercises w/ elbow extended. 3 x 15 reps. 05/28/23 = Every other day; modified wall push-ups. 3 x 5 reps. 05/21/23 = Complete exercises 3 x a week, or every other day. 05/14/23 = Instructed in use of wall as an alternative to for elbow ext combined w/ forearm supination and wrist/digit ext. Rec 20 to 30 sec hold. Provided w/ TB #3 for home use for wrist strengthening; recommended 3 x 15 reps w/ wrist ext, wrist flex, wrist UD, wrist RD. Instructed in strengthening into wrist UD w/ loop of TB at TT. Discussed potential use of PVC pipe for self-made 'handle'. Instructed in walk-outs w/ use of wall for modified WB; other option to stabilize feet w/ alt UE WB at wall. 05/07/23 = Self-distraction technique. - Plan Therapy Recommendations Decrease Frequency of Rehabilitation
--- NOTE | 2023-09-05 08:38 | OT.OPPOC ---
Physical, Occupational & Speech Therapy At [facility] [id number] 1995 Visit Care Team Role Provider Type Evette Sethi MD Family Provider Non-Staff Primary Care Provider Address: [address] [place] [address], [id number] Heriberto Ferrell DO Attending Provider Non-Staff Referring Provider Address: [address] [place] [address], [id number] Occupational Therapy Plan of Care OT Outpatient Adult Evaluation Start: 05/01/23 08:51 Freq: Status: Active Protocol: Document 04/30/23 16:00 AMS (Rec: 05/01/23 09:25 AMS [id number]) General Information - Adult Visit Information Plan of Care Dates 04/30/23 - 06/25/23 Insurance Information Prime; EVAL ONLY then 12 visits auth Session Time Visit Start Time 07:30 Visit Stop Time 08:15 Total Visit Minutes 45 Setting Treatment Setting Outpatient Care Visit Type Note Type Initial Evaluation Identification Identification Confirmed Yes Identification Confirmed By 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 Elida will be modified independent with execution of home exercise program utilizing provided written and visual instructions from therapist. 2. Elida will present with increased ability to participate in meaningful activities as evidenced by the followina. Elida will obtain a QuickDASH UE Outcome Measure Score of 15.00 or less. 2b. Elida will obtain a QuickDASH UE Work Module Score of 15.00 or less. 2c. Elida will obtain a QuickDASH UE Sports/Performing Arts Module Score of 50.00 or less. 2d. Elida will report ability to execute x 10 push-ups without exacerbation of pain/ discomfort of the right distal UE on 2 separate occasions (2 days per week). Assessment/Plan Assessment Treatment Assessment Elida is a 27 year-old right hand dominant female referred to outpatient OT by PCP secondary to recurrent right lateral epicondylitis. 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 Medical history is significant for removal of adenoids (2006), Lung surgery (2017). Elida indicated 1 out of 10 on Pain Assessment Grid relative to right lateral epicondyle --> distally to dorsal R wrist. QuickDASH UE Outcome Measure Score = 25.00; QuickDASH UE Outcome Measure Work Module Score = 25.00; QuickDASH UE Outcome Measure Sports/Performing Arts Module Score = 68.75. Elida reported going to Urgent Care in February (2022) d/t inability to move R UE; x-ray was completed and it was negative. She reported being prescribed an anti-inflammatory by Urgent Care and taking the medication for 1 week. She reportedly has iced intermittently; she denied use of tennis elbow band/strap and/or use of kinesiotape. She has a h/o rock climbing, yoga, and completing push-ups or planks (but has ceased these activities d/t aggravation of symptoms). ROM findings were as follows: 0-65 degrees active R wrist flex vs 0-65 degrees active L wrist flex; 0 -65 degrees active R wrist ext vs 0-70 degrees active L wrist ext; 0-20 degrees active R wrist RD vs 0-20 degrees active L wrist RD; 0-30 degrees active R wrist UD vs 0 -25 degrees active L wrist UD. Full bilateral elbow flexion/ extension. MMT testing findings were as follows: 5/5 MMT in all directions bilaterally (wrist flex, ext, RD, UD). Some discomfort reported R dorsal forearm distal to mid forearm --> and proximal approx 3 inches from R wrist w/ resisted wrist extension; did not indicate exacerbation of pain symptoms at R lateral epicondyle w/ supported and/or unsupported R wrist ext. 41.0# R marker delivery vs 45 .0# L marker delivery w/ dynamometer II testing w/ elbow in 90 degrees flex; 27.0# R marker delivery vs 34.0# L marker delivery w/ dynamometer II testing w/ elbow in ext. Some tenderness to palpation at R lateral epicondyle; R radial volar wrist tightness. Frequently noted to roll bilateral wrists w/ some crepitus between tasks. Elida would likely benefit from outpatient skilled OT to address pain/discomfort, environmental modifications/ education, and weakness to support Elida's ability to successfully and actively participate in meaningful activities in a variety of environments. Home Exercise Program 7/10/23 = Instructed in passive wrist flex/ext; recommended completing 1 to 2 reps w/ hold of 20 to 30 sec w / elbow in extension. Instructed in passive UD to address radial sided tightness of wrist w/ forearm in supination and elbow in 90 degrees flex based on current comfort. Rec completed 1 to 2 reps w/ hold of 20 to 30 seconds. Plan Length of treatment (weeks) 8 Plan of Care Start Date 04/30/23 Plan of Care End Date 06/25/23 Treatment Frequency Once a Week Therapeutic Contents Active Range of Motion, Adaptive Equipment Education, Client Education,Functional Activities,Home Exercise Program,Joint Protection, Manual Therapy,Education,Self- Care,Stretching/Flexibility Activities,Therapeutic Activities,Therapeutic Exercises,Modalities Modalities As Needed,As Prescribed Additional Types of Modalities US/Heat/Ice/Cold Pack/Contrast baths/Kinesiotape Functional Wrist/Hand Scan Hand Side Sensory Assessment Sensory Profile2 OT Outpatient Treatment Note - Adult Start: 05/01/23 08:51 Freq: Status: Active Protocol: Document 09/05/23 08:21 AMS (Rec: 09/05/23 08:38 AMS [id number]) OT Outpatient Adult Treatment Note Session Time Visit Start Time 07:40 Visit Stop Time 08:15 Total Visit Minutes 35 Visit Information Visit Number 12/12; 0/72 Plan of Care Dates 08/28/23 - 10/16/23 Insurance Information Prime; EVAL ONLY then 12 visits auth Setting Treatment Setting Outpatient Care Visit Type Note Type Progress Note General Information General Information Elida is a 28 year-old right hand dominant female referred to outpatient OT by PCP secondary to recurrent right lateral epicondylitis. 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 Medical history is significant for removal of adenoids (2006), Lung surgery (2017). - Subjective Identification Type Name Identification Reconciled With Medical Record Observations (+) compliance w/ home exercise program (stretches and strengthening exercises utilizing TB#2). Continued use of R wrist brace (primarily in the home); executing tricep dips and wall push-ups w/ wrist brace on. Reported exacerbation of symptoms of elbow w/ wall push-ups w/ elbows out w/ wide positioning given natural tendencies ( rested x 2 days --> felt better Sunday/Sunday). Utilizing computer at school w / standard mouse versus laptop at home w/ mouse square. Denied recent trial of push- ups; indicated that she will likely execute them with fists . Indication of 1 out of 10 on Pain Assessment Grid relative to right lateral elbow. Patient/Caregiver Compliance with Home Good Exercise Program Comment utilizing TB #2; - Objective Objective Measurements Please refer to below for progress towards meeting established OT goals: 08/22/23 = Indication of 1 out of 10 on Pain Assessment Grid relative to right lateral elbow. 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 Elida will be modified independent with execution of home exercise program utilizing provided written and visual instructions from therapist. 09/05/23 = 75% met 2. Elida will present with increased ability to participate in meaningful activities as evidenced by the followina. Elida will obtain a QuickDASH UE Outcome Measure Score of 15.00 or less. = 75% met; Score = 18.18 ( versus initial 25.00) 2b. Elida will obtain a QuickDASH UE Sports/Performing Arts Module Score of 50.00 or less. 2c. Elida will report ability to execute x 10 push-ups without exacerbation of pain/ discomfort of the right distal UE on 2 separate occasions (2 days per week). 09/05/23 = 25% met; recommended GOALS MET Elida will obtain a QuickDASH UE Work Module Score of 15.00 or less. *MET 08/22/23 = Score = 12.50 - Exercises 6 Descriptor Eccentric strengthening. Red flex bar wrist ext. 3 x 15 . Horizontal orientation of flexbar. Red flex bar wrist flex. 3 x 15. Horizontal orientation of flexbar. Red flex bar wrist ext. 3 x 15 . Vertical orientation of flexbar. Red flex bar wrist flex. 3 x 15. Vertical orientation of flexbar. Red flex bar forearm pronation . 3 x 15. Red flex bar forearm supination. 3 x 15. 5 Descriptor UEB x 7 minutes. Forwards direction. Seated (avoidance of full elbow extension). 4 Descriptor Passive wrist stretches. Elbow ext w/ forearm supination w/ wrist ext and elbow ext w/ forearm pronation w/ wrist flex. Hold 20 sec. x 1 rep each exercise. Elbow near full ext w/ passive wrist RD/UD. Hold 20 sec. x 1 rep each exercise. 2 Descriptor Wrist strengthening exercises. Wrist ext w/ TT tap -> elbow flex w/ wrist ext w/ use of 2. 2# weighted spherical ball. 3 x 15 reps. Underhand catch. 2.2# weighted spherical ball. 3 x 15 reps. Overhand catch. 2.2# weighted spherical ball. 3 x 15 reps. N/A 08/15/23 Alt underhand/overhand catch. 2.2# weighted spherical ball. 3 x 15 reps. 1 Descriptor Wrist strengthening exercises. TB #2 wrist ext. 3 x 15. Elbow supported prox on arm rest. TB #2 wrist flex. 3 x 15. Elbow supported prox on arm rest. TB #[address] 3 x 15. Elbow supported prox on arm rest. TB #2 wrist UD. 3 x 15. Use of TT to complete this exercise. Some elbow flexion. N/A 07/25/23 TB #3 wrist ext. 3 x 15. Elbow extended. TB #3 wrist flex. 3 x 15. Elbow extended. TB #[address] 3 x 15. Elbow extended. N/A 06/04/23 Wrist extension w/ use of dowel and elbows in 90 degrees flexion. 4# DB. 3 cycles. - Assessment Assessment of Improvement Some progress has been made over last certification period ; there has been a decrease in QuickDASH UE Outcome Measure Scores (12.50 vs 25.00), slight increase in R marker delivery strength, although, L marker delivery strength continues to be greater w/ elbow in 90 degrees flex w/ dynamometer II, and mild increases in bilateral marker delivery strength w/ elbow near full ext w/ dynamometer II (w/ L marker delivery > R marker delivery) and Elida has modified some work based activities to reduce discomfort (via utilization of wrist brace w/ school based tasks). There has been no change in active R wrist ext ( 0-65 degrees pre-stretch and 0 -67 degrees post- wrist stretch held for 20 sec). Rec cont use of TB #2 for strengthening at this time (w/ focus on eccentric strengthening) for HEP and consideration of reduced elbow range of motion w/ wall push- ups vs narrow base of support of hands/elbows in, use of DB for tricep dips). Continued outpatient OT is recommended given cont limitations w/ participation in regular exercise routine and work activities. Recommend return to PCP to explore less conservative measures vs referral to upper extremity sports medicine specialist if plateau is reached and/or no further progress is made. Home Exercise Program 08/22/23 = DB push-ups vs fisting hands w/ push-ups. 08/01/23 = Trial use of wrist brace w/ written tasks; reduce amount of ROM w/ wall push- ups and avoid locking into extension. 07/25/23 = Provision of TB #2 was provided. Rec for use w/ wrist strengthening exercises. Rec trialing incline/slant board w/ written task completion. 06/12/23 = Wrist exercises w/ elbow extended. 3 x 15 reps. 05/28/23 = Every other day; modified wall push-ups. 3 x 5 reps. 05/21/23 = Complete exercises 3 x a week, or every other day. 05/14/23 = Instructed in use of wall as an alternative to for elbow ext combined w/ forearm supination and wrist/digit ext. Rec 20 to 30 sec hold. Provided w/ TB #3 for home use for wrist strengthening; recommended 3 x 15 reps w/ wrist ext, wrist flex, wrist UD, wrist RD. Instructed in strengthening into wrist UD w/ loop of TB at TT. Discussed potential use of PVC pipe for self-made 'handle'. Instructed in walk-outs w/ use of wall for modified WB; other option to stabilize feet w/ alt UE WB at wall. 05/07/23 = Self-distraction technique. - Plan Therapy Recommendations Decrease Frequency of Rehabilitation Comment 7 weeks Comment 1 x a week vs 1 x every other week Therapeutic Contents Active Range of Motion, Adaptive Equipment Education, Client Education,Functional Activities,Home Exercise Program,Joint Protection, Manual Therapy,Education, Neurodevelopment Treatment, Neuromuscular Re-Education, Self-Care,Therapeutic Activities,Therapeutic Exercises,Modalities Modalities As Needed,As Prescribed Additional Types of Modalities Ice/Heat/Contrast/Ultrasound Electronically Signed by: Diana Huntley OT 09/05/23 0839 If you are in agreement with this Plan of Care, please return a signed and dated copy. I have reviewed this Plan of Care and certify that the skilled therapy services above are required to meet the patient?s needs. Physician Signature Date Printed Name and Credentials Clinical Instructor Signature Printed Name and Credentials
--- NOTE | 2023-09-20 15:54 | OT.OP.TRT ---
Visit Care Team Role Provider Type Evette Sethi MD Family Provider Non-Staff Primary Care Provider Specialty: Medical Address: [address] [place] [address], [id number] Email: Heriberto Ferrell DO Attending Provider Non-Staff Referring Provider Specialty: Family Practice Address: [address] [place] [address], [id number] Email: Occupational Therapy Treatment Note OT Outpatient Treatment Note - Adult Start: 05/01/23 08:51 Freq: Status: Active Protocol: Document 09/20/23 15:48 AMS (Rec: 09/20/23 15:54 AMS [id number]) OT Outpatient Adult Treatment Note Session Time Visit Start Time 07:45 Visit Stop Time 08:15 Total Visit Minutes 30 Visit Information Visit Number Plan of Care Dates 08/28/23 - 10/16/23 Insurance Information Prime; EVAL ONLY then 12 visits auth Setting Treatment Setting Outpatient Care Visit Type Note Type Treatment Note General Information General Information Elida is a 28 year-old right hand dominant female referred to outpatient OT by PCP secondary to recurrent right lateral epicondylitis. 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 Medical history is significant for removal of adenoids (2006), Lung surgery (2017). - Subjective Identification Type Name Identification Reconciled With Medical Record Observations Report of decreased execution of home exercises in last few weeks; discomfort in R elbow presented on Sunday which could have been to combination of computer work and throwing ball for game of fetch w/ dog . Clicking in R elbow reported yesterdday when walkign w/ active R arm swing. Patient/Caregiver Compliance with Home Good Exercise Program Comment utilizing TB #2; - Objective Objective Measurements Please refer to below for progress towards meeting established OT goals: 08/22/23 = Indication of 1 out of 10 on Pain Assessment Grid relative to right lateral elbow. Long-Term Goals 1. Elida will be modified independent with execution of home exercise program utilizing provided written and visual instructions from therapist. 09/05/23 = 75% met 2. Elida will present with increased ability to participate in meaningful activities as evidenced by the followina. Elida will obtain a QuickDASH UE Outcome Measure Score of 15.00 or less. = 75% met; Score = 18.18 ( versus initial 25.00) 2b. Elida will obtain a QuickDASH UE Sports/Performing Arts Module Score of 50.00 or less. 2c. Elida will report ability to execute x 10 push-ups without exacerbation of pain/ discomfort of the right distal UE on 2 separate occasions (2 days per week). 09/05/23 = 25% met; recommended GOALS MET Elida will obtain a QuickDASH UE Work Module Score of 15.00 or less. *MET 08/22/23 = Score = 12.50 - Exercises 6 Descriptor Eccentric strengthening. Red flex bar wrist ext. 3 x 15 . Vertical orientation of flexbar. Red flex bar wrist flex. 3 x 15. Vertical orientation of flexbar. Red flex bar forearm pronation . 2 x 15. Red flex bar forearm supination. 2 x 15. 5 Descriptor UEB x 10 minutes. Forwards direction. Seated (avoidance of full elbow extension). 4 Descriptor Passive wrist stretches. Elbow ext w/ forearm supination w/ wrist ext and elbow ext w/ forearm pronation w/ wrist flex. Hold 20 sec. x 1 rep each exercise. Elbow near full ext w/ passive wrist RD/UD. Hold 20 sec. x 1 rep each exercise. 1 Descriptor Wrist strengthening exercises. TB #2 wrist ext. 3 x 15. Elbow supported prox on arm rest. TB #2 wrist flex. 3 x 15. Elbow supported prox on arm rest. TB #[address] 3 x 15. Elbow supported prox on arm rest. TB #2 wrist UD. 3 x 15. Use of TT to complete this exercise. Some elbow flexion. N/A 07/25/23 TB #3 wrist ext. 3 x 15. Elbow extended. TB #3 wrist flex. 3 x 15. Elbow extended. TB #[address] 3 x 15. Elbow extended. N/A 06/04/23 Wrist extension w/ use of dowel and elbows in 90 degrees flexion. 4# DB. 3 cycles. - Assessment Assessment of Improvement Elida is expecting. Decreased compliance w/ HEP last few weeks; clicking noted yesterday w/ arm swing w/ reported exacerbation possibly on Sunday w/ combination of computer work and throwing ball for dog/fetch. Discomfort in R elbow reported w/ stabilization of flex bar w/ forearm in neutral position w/ supination exercise. Thus, decreased number of sets of this exercise completed bilaterally. Rec cont use of TB #2 for strengthening at this time (w/ focus on eccentric strengthening) for HEP and consideration of reduced elbow range of motion w/ wall push-ups vs narrow base of support of hands/ elbows in, use of DB for tricep dips). Continued outpatient OT is recommended given cont limitations w/ participation in regular exercise routine and work activities. Recommend return to PCP to explore less conservative measures vs referral to upper extremity academic guidance specialist if plateau is reached and/or no further progress is made. Home Exercise Program 08/22/23 = DB push-ups vs fisting hands w/ push-ups. 08/01/23 = Trial use of wrist brace w/ written tasks; reduce amount of ROM w/ wall push- ups and avoid locking into extension. 07/25/23 = Provision of TB #2 was provided. Rec for use w/ wrist strengthening exercises. Rec trialing incline/slant board w/ written task completion. 06/12/23 = Wrist exercises w/ elbow extended. 3 x 15 reps. 05/28/23 = Every other day; modified wall push-ups. 3 x 5 reps. 05/21/23 = Complete exercises 3 x a week, or every other day. 05/14/23 = Instructed in use of wall as an alternative to for elbow ext combined w/ forearm supination and wrist/digit ext. Rec 20 to 30 sec hold. Provided w/ TB #3 for home use for wrist strengthening; recommended 3 x 15 reps w/ wrist ext, wrist flex, wrist UD, wrist RD. Instructed in strengthening into wrist UD w/ loop of TB at TT. Discussed potential use of PVC pipe for self-made 'handle'. Instructed in walk-outs w/ use of wall for modified WB; other option to stabilize feet w/ alt UE WB at wall. 05/07/23 = Self-distraction technique. - Plan Therapy Recommendations Advance per Rehabilitation Protocol
--- NOTE | 2023-10-03 15:48 | OT.OP.TRT ---
Visit Care Team Role Provider Type Evette Sethi MD Family Provider Non-Staff Primary Care Provider Specialty: Medical Address: [address] [place] [address], [id number] Email: Heriberto Ferrell DO Attending Provider Non-Staff Referring Provider Specialty: Family Practice Address: [address] [place] [address], [address] Email: Occupational Therapy Treatment Note OT Outpatient Treatment Note - Adult Start: 05/01/23 08:51 Freq: Status: Active Protocol: Document 10/03/23 15:35 AMS (Rec: 10/03/23 15:48 AMS [id number]) OT Outpatient Adult Treatment Note Session Time Visit Start Time 07:30 Visit Stop Time 08:15 Total Visit Minutes 45 Visit Information Visit Number Plan of Care Dates 08/28/23 - 10/16/23 Insurance Information Prime; EVAL ONLY then 12 visits auth Setting Treatment Setting Outpatient Care Visit Type Note Type Treatment Note General Information General Information Elida is a 28 year-old right hand dominant female referred to outpatient OT by PCP secondary to recurrent right lateral epicondylitis. 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 Medical history is significant for removal of adenoids (2006), Lung surgery (2017). - Subjective Identification Type Name Identification Reconciled With Medical Record Observations d/t discomfort in R elbow post - previous treatment session rested until following Sunday which would have been 09/25/23 . Has modified planks w/ use of wrist brace and formation of fist(s); discomfort noted w / TB lat pulldown. (+) use of alarm system on personal cell phone for reminder to complete stretching exercises which has been helpful. *Elida is expecting* 09/20/23 = Clicking in R elbow reported yesterday when walking w/ active R arm swing. Patient/Caregiver Compliance with Home Good Exercise Program Comment utilizing TB #2; - Objective Objective Measurements Please refer to below for progress towards meeting established OT goals: 08/22/23 = Indication of 1 out of 10 on Pain Assessment Grid relative to right lateral elbow. Fpc Goals 1. Elida will be modified independent with execution of home exercise program utilizing provided written and visual instructions from therapist. 09/05/23 = 75% met 2. Elida will present with increased ability to participate in meaningful activities as evidenced by the followina. Elida will obtain a QuickDASH UE Outcome Measure Score of 15.00 or less. = 75% met; Score = 18.18 ( versus initial 25.00) 2b. Elida will obtain a QuickDASH UE Sports/Performing Arts Module Score of 50.00 or less. 2c. Elida will report ability to execute x 10 push-ups without exacerbation of pain/ discomfort of the right distal UE on 2 separate occasions (2 days per week). 09/05/23 = 25% met; recommended GOALS MET Elida will obtain a QuickDASH UE Work Module Score of 15.00 or less. *MET 08/22/23 = Score = 12.50 - Exercises 6 Descriptor Eccentric strengthening. Red flex bar wrist ext. 2 x 15 . Vertical orientation of flexbar. Red flex bar wrist flex. 2 x 15. Vertical orientation of flexbar. Red flex bar forearm pronation . 2 x 15. Red flex bar forearm supination. 2 x 15. 5 Descriptor UEB x 10 minutes. Forwards direction. Seated (avoidance of full elbow extension). 4 Descriptor Passive wrist stretches. Elbow ext w/ forearm supination w/ wrist ext and elbow ext w/ forearm pronation w/ wrist flex. Hold 20 sec. x 2 reps each exercise. Elbow near full ext w/ passive wrist RD/UD. Hold 20 sec. x 2 reps each exercise. 1 Descriptor Wrist strengthening exercises. TB #2 wrist ext. 3 x 15. Elbow supported prox on arm rest. TB #2 wrist flex. 3 x 15. Elbow supported prox on arm rest. TB #[address] 3 x 15. Elbow supported prox on arm rest. TB #2 wrist UD. 3 x 15. Use of TT to complete this exercise. Some elbow flexion. N/A 07/25/23 TB #3 wrist ext. 3 x 15. Elbow extended. TB #3 wrist flex. 3 x 15. Elbow extended. TB #[address] 3 x 15. Elbow extended. N/A 06/04/23 Wrist extension w/ use of dowel and elbows in 90 degrees flexion. 4# DB. 3 cycles. - Assessment Assessment of Improvement d/t increased pain/discomfort post- previous treatment session reduced number of sets w/ red flexbar to 2 x 15 versus 3 x 15 w/ wrist flex and wrist ext and increased repetitions of distal UE passive range of motion stretches from 1 rep to 2 repetitions. Rec cont use of TB #2 for strengthening at this time (w/ focus on eccentric strengthening). Rec observing lat pulldown w/ TB to determine if pain/ discomfort is presenting in elbow vs wrist. Good use of personal cell phone via alarm( s) to support reminder(s) to execute stretches. Continued outpatient OT is recommended given cont limitations w/ participation in regular exercise routine and work activities. Recommend return to PCP to explore less conservative measures vs referral to upper extremity data specialist if plateau is reached and/or no further progress is made. Home Exercise Program 08/22/23 = DB push-ups vs fisting hands w/ push-ups. 08/01/23 = Trial use of wrist brace w/ written tasks; reduce amount of ROM w/ wall push- ups and avoid locking into extension. 07/25/23 = Provision of TB #2 was provided. Rec for use w/ wrist strengthening exercises. Rec trialing incline/slant board w/ written task completion. 06/12/23 = Wrist exercises w/ elbow extended. 3 x 15 reps. 05/28/23 = Every other day; modified wall push-ups. 3 x 5 reps. 05/21/23 = Complete exercises 3 x a week, or every other day. 05/14/23 = Instructed in use of wall as an alternative to for elbow ext combined w/ forearm supination and wrist/digit ext. Rec 20 to 30 sec hold. Provided w/ TB #3 for home use for wrist strengthening; recommended 3 x 15 reps w/ wrist ext, wrist flex, wrist UD, wrist RD. Instructed in strengthening into wrist UD w/ loop of TB at TT. Discussed potential use of PVC pipe for self-made 'handle'. Instructed in walk-outs w/ use of wall for modified WB; other option to stabilize feet w/ alt UE WB at wall. 05/07/23 = Self-distraction technique. - Plan Therapy Recommendations Advance per Rehabilitation Protocol
--- NOTE | 2023-10-17 09:39 | OT.OPPOC ---
Physical, Occupational & Speech Therapy At [facility] Elida Roth [id number] 1995 Visit Care Team Role Provider Type Evette Sethi MD Family Provider Non-Staff Primary Care Provider Address: [address] [place] [address], [id number] Heriberto Ferrell DO Attending Provider Non-Staff Referring Provider Address: [address] [place] [address], [phone] Occupational Therapy Plan of Care OT Outpatient Adult Evaluation Start: 05/01/23 08:51 Freq: Status: Active Protocol: Document 04/30/23 16:00 AMS (Rec: 05/01/23 09:25 AMS [id number]) General Information - Adult Visit Information Plan of Care Dates 04/30/23 - 06/25/23 Insurance Information Prime; EVAL ONLY then 12 visits auth Session Time Visit Start Time 07:30 Visit Stop Time 08:15 Total Visit Minutes 45 Setting Treatment Setting Outpatient Care Visit Type Note Type Initial Evaluation Identification Identification Confirmed Yes Identification Confirmed By Self 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 Elida will be modified independent with execution of home exercise program utilizing provided written and visual instructions from therapist. 2. Elida will present with increased ability to participate in meaningful activities as evidenced by the followina. Elida will obtain a QuickDASH UE Outcome Measure Score of 15.00 or less. 2b. Elida will obtain a QuickDASH UE Work Module Score of 15.00 or less. 2c. Elida will obtain a QuickDASH UE Sports/Performing Arts Module Score of 50.00 or less. 2d. Elida will report ability to execute x 10 push-ups without exacerbation of pain/ discomfort of the right distal UE on 2 separate occasions (2 days per week). Assessment/Plan Assessment Treatment Assessment Elida is a 27 year-old right hand dominant female referred to outpatient OT by PCP secondary to recurrent right lateral epicondylitis. 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 Medical history is significant for removal of adenoids (2006), Lung surgery (2017). Elida indicated 1 out of 10 on Pain Assessment Grid relative to right lateral epicondyle --> distally to dorsal R wrist. QuickDASH UE Outcome Measure Score = 25.00; QuickDASH UE Outcome Measure Work Module Score = 25.00; QuickDASH UE Outcome Measure Sports/Performing Arts Module Score = 68.75. Elida reported going to Urgent Care in February (2022) d/t inability to move R UE; x-ray was completed and it was negative. She reported being prescribed an anti-inflammatory by Urgent Care and taking the medication for 1 week. She reportedly has iced intermittently; she denied use of tennis elbow band/strap and/or use of kinesiotape. She has a h/o rock climbing, yoga, and completing push-ups or planks (but has ceased these activities d/t aggravation of symptoms). ROM findings were as follows: 0-65 degrees active R wrist flex vs 0-65 degrees active L wrist flex; 0 -65 degrees active R wrist ext vs 0-70 degrees active L wrist ext; 0-20 degrees active R wrist RD vs 0-20 degrees active L wrist RD; 0-30 degrees active R wrist UD vs 0 -25 degrees active L wrist UD. Full bilateral elbow flexion/ extension. MMT testing findings were as follows: 5/5 MMT in all directions bilaterally (wrist flex, ext, RD, UD). Some discomfort reported R dorsal forearm distal to mid forearm --> and proximal approx 3 inches from R wrist w/ resisted wrist extension; did not indicate exacerbation of pain symptoms at R lateral epicondyle w/ supported and/or unsupported R wrist ext. 41.0# R retail wireless associate vs 45 .0# L retail wireless associate w/ dynamometer II testing w/ elbow in 90 degrees flex; 27.0# R retail wireless associate vs 34.0# L retail wireless associate w/ dynamometer II testing w/ elbow in ext. Some tenderness to palpation at R lateral epicondyle; R radial volar wrist tightness. Frequently noted to roll bilateral wrists w/ some crepitus between tasks. Elida would likely benefit from outpatient skilled OT to address pain/discomfort, environmental modifications/ education, and weakness to support Elida's ability to successfully and actively participate in meaningful activities in a variety of environments. Home Exercise Program 04/30/23 = Instructed in passive wrist flex/ext; recommended completing 1 to 2 reps w/ hold of 20 to 30 sec w / elbow in extension. Instructed in passive UD to address radial sided tightness of wrist w/ forearm in supination and elbow in 90 degrees flex based on current comfort. Rec completed 1 to 2 reps w/ hold of 20 to 30 seconds. Plan Length of treatment (weeks) 8 Plan of Care Start Date 04/30/23 Plan of Care End Date 06/25/23 Treatment Frequency Once a Week Therapeutic Contents Active Range of Motion, Adaptive Equipment Education, Client Education,Functional Activities,Home Exercise Program,Joint Protection, Manual Therapy,Education,Self- Care,Stretching/Flexibility Activities,Therapeutic Activities,Therapeutic Exercises,Modalities Modalities As Needed,As Prescribed Additional Types of Modalities US/Heat/Ice/Cold Pack/Contrast baths/Kinesiotape Functional Wrist/Hand Scan Hand Side Sensory Assessment Sensory Profile2 OT Outpatient Treatment Note - Adult Start: 05/01/23 08:51 Freq: Status: Active Protocol: Document 10/17/23 09:27 AMS (Rec: 10/17/23 09:39 AMS [id number]) OT Outpatient Adult Treatment Note Session Time Visit Start Time 08:30 Visit Stop Time 09:10 Total Visit Minutes 40 Visit Information Visit Number 3/72 Plan of Care Dates 10/16/23 - 12/19/23 Insurance Information Prime; EVAL ONLY; 72 visits auth Setting Treatment Setting Outpatient Care Visit Type Note Type Treatment Note General Information General Information Elida is a 28 year-old right hand dominant female referred to outpatient OT by PCP secondary to recurrent right lateral epicondylitis. 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 Medical history is significant for removal of adenoids (2005), Lung surgery (2017). - Subjective Identification Type Name Identification Reconciled With Medical Record Observations Vacation in [place] to see family x 10 days w/ use of 3# DB to execute wrist strengthening exercises; she and her will be relocating to [place] in December d/t 's job. *Elida is expecting* 09/20/23 = Clicking in R elbow reported yesterday when walking w/ active R arm swing. Patient/Caregiver Compliance with Home Good Exercise Program Comment utilizing TB #2; - Objective Objective Measurements Please refer to below for progress towards meeting established OT goals: 08/22/23 = Indication of 1 out of 10 on Pain Assessment Grid relative to right lateral elbow. Intermediate Goals 1. Elida will be modified independent with execution of home exercise program utilizing provided written and visual instructions from therapist. 09/05/23 = 75% met 2. Elida will present with increased ability to participate in meaningful activities as evidenced by the followina. Elida will obtain a QuickDASH UE Outcome Measure Score of 15.00 or less. = 75% met; Score = 18.18 ( versus initial 25.00) 2b. Elida will obtain a QuickDASH UE Sports/Performing Arts Module Score of 50.00 or less. 2c. Elida will report ability to execute x 10 push-ups without exacerbation of pain/ discomfort of the right distal UE on 2 separate occasions (2 days per week). 09/05/23 = 25% met; recommended GOALS MET Elida will obtain a QuickDASH UE Work Module Score of 15.00 or less. *MET 08/22/23 = Score = 12.50 - Exercises 6 Descriptor Eccentric strengthening. Red flex bar wrist ext. 3 x 15 . Vertical orientation of flexbar. Red flex bar wrist flex. 3 x 15. Vertical orientation of flexbar. Red flex bar forearm pronation . 3 x 15. Red flex bar forearm supination. 3 x 15. Red flex bar forearm supination w/ resisted UD. 3 x 15. 5 Descriptor UEB x 10 minutes. Forwards direction. Seated (avoidance of full elbow extension). 4 Descriptor Passive wrist stretches. Elbow ext w/ forearm supination w/ wrist ext and elbow ext w/ forearm pronation w/ wrist flex. Hold 20 sec. x 2 reps each exercise. Elbow near full ext w/ passive wrist RD/UD. Hold 20 sec. x 2 reps each exercise. 1 Descriptor Wrist strengthening exercises. TB #2 wrist ext. 3 x 15. Elbow supported prox on arm rest. TB #2 wrist flex. 3 x 15. Elbow supported prox on arm rest. TB #[address] 3 x 15. Elbow supported prox on arm rest. TB #2 wrist UD. 3 x 15. Use of TT to complete this exercise. Some elbow flexion. N/A 07/25/23 TB #3 wrist ext. 3 x 15. Elbow extended. TB #3 wrist flex. 3 x 15. Elbow extended. TB #[address] 3 x 15. Elbow extended. N/A 06/04/23 Wrist extension w/ use of dowel and elbows in 90 degrees flexion. 4# DB. 3 cycles. - Assessment Assessment of Improvement Recent vacation w/ use of 3# DB for execution of strengthening exercises; denial of exacerbation of pain symptoms. Recent use of personal cell phone via alarm( s) to support reminder(s) to execute stretches and utilizing brace as needed to support completion of exercises. Some mild ulnar wrist pain/discomfort post- red flex bar UD strengthening exercises; this may have been d/t increased wrist ext despite bilateral 90 degrees elbow flex. Will need to monitor execution. Continued outpatient OT is recommended given cont limitations w/ participation in regular exercise routine and work activities. Recommend return to PCP to explore less conservative measures vs referral to upper extremity emergency medicine specialist if plateau is reached and/or no further progress is made. Home Exercise Program 08/22/23 = DB push-ups vs fisting hands w/ push-ups. 08/01/23 = Trial use of wrist brace w/ written tasks; reduce amount of ROM w/ wall push- ups and avoid locking into extension. 07/25/23 = Provision of TB #2 was provided. Rec for use w/ wrist strengthening exercises. Rec trialing incline/slant board w/ written task completion. 06/12/23 = Wrist exercises w/ elbow extended. 3 x 15 reps. 05/28/23 = Every other day; modified wall push-ups. 3 x 5 reps. 05/21/23 = Complete exercises 3 x a week, or every other day. 05/14/23 = Instructed in use of wall as an alternative to for elbow ext combined w/ forearm supination and wrist/digit ext. Rec 20 to 30 sec hold. Provided w/ TB #3 for home use for wrist strengthening; recommended 3 x 15 reps w/ wrist ext, wrist flex, wrist UD, wrist RD. Instructed in strengthening into wrist UD w/ loop of TB at TT. Discussed potential use of PVC pipe for self-made 'handle'. Instructed in walk-outs w/ use of wall for modified WB; other option to stabilize feet w/ alt UE WB at wall. 05/07/23 = Self-distraction technique. - Plan Therapy Recommendations Advance per Rehabilitation Protocol Comment 9 weeks Comment 1 x every other week Therapeutic Contents Active Range of Motion, Adaptive Equipment Education, Client Education,Functional Activities,Home Exercise Program,Joint Protection, Manual Therapy,Education, Neurodevelopment Treatment, Neuromuscular Re-Education, Self-Care,Splinting,Stretching /Flexibility Activities, Therapeutic Activities, Therapeutic Exercises, Modalities Modalities As Needed,As Prescribed Additional Types of Modalities Ice/Heat/Contrast Baths/ Ultrasound/Paraffin bath Electronically Signed by: Diana Huntley OT 10/17/23 0939 If you are in agreement with this Plan of Care, please return a signed and dated copy. I have reviewed this Plan of Care and certify that the skilled therapy services above are required to meet the patient?s needs. Physician Signature Date Printed Name and Credentials Clinical Instructor Signature Printed Name and Credentials
--- NOTE | 2023-10-31 08:48 | OT.OP.TRT ---
Visit Care Team Role Provider Type Evette Sethi MD Family Provider Non-Staff Primary Care Provider Specialty: Medical Address: [address] [place] [address], [phone] Email: Heriberto Ferrell DO Attending Provider Non-Staff Referring Provider Specialty: Family Practice Address: [address] [place] [address], [address] Email: Occupational Therapy Treatment Note OT Outpatient Treatment Note - Adult Start: 05/01/23 08:51 Freq: Status: Active Protocol: Document 10/31/23 08:41 AMS (Rec: 10/31/23 08:48 AMS [id number]) OT Outpatient Adult Treatment Note Session Time Visit Start Time 07:35 Visit Stop Time 08:15 Total Visit Minutes 40 Visit Information Visit Number Plan of Care Dates 10/16/23 - 12/19/23 Insurance Information Prime; EVAL ONLY; 72 visits auth Setting Treatment Setting Outpatient Care Visit Type Note Type Treatment Note General Information General Information Elida is a 28 year-old right hand dominant female referred to outpatient OT by PCP secondary to recurrent right lateral epicondylitis. 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 Medical history is significant for removal of adenoids (2005), Lung surgery (2016). - Subjective Identification Type Name Identification Reconciled With Medical Record Observations Report of using TB#3 at home. Able to complete writing tasks without wrist brace; use of wrist brace w/ execution of computer based tasks. *Elida is expecting. Elida & her will be relocating to [place] in December 2023. 09/20/23 = Clicking in R elbow reported yesterday when walking w/ active R arm swing. Patient/Caregiver Compliance with Home Good Exercise Program Comment utilizing TB #3 - Objective Objective Measurements Please refer to below for progress towards meeting established OT goals: 08/22/23 = Indication of 1 out of 10 on Pain Assessment Grid relative to right lateral elbow. 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 Elida will be modified independent with execution of home exercise program utilizing provided written and visual instructions from therapist. 09/05/23 = 75% met 2. Elida will present with increased ability to participate in meaningful activities as evidenced by the followina. Elida will obtain a QuickDASH UE Outcome Measure Score of 15.00 or less. = 75% met; Score = 18.18 ( versus initial 25.00) 2b. Elida will obtain a QuickDASH UE Sports/Performing Arts Module Score of 50.00 or less. 2c. Elida will report ability to execute x 10 push-ups without exacerbation of pain/ discomfort of the right distal UE on 2 separate occasions (2 days per week). 09/05/23 = 25% met; recommended GOALS MET Elida will obtain a QuickDASH UE Work Module Score of 15.00 or less. *MET 08/22/23 = Score = 12.50 - Exercises 6 Descriptor Distal UE strengthening. Red flex bar wrist flex. 3 x 15. Horizontal orientation of flexbar. N/A 10/31/23 Red flex bar wrist ext. 3 x 15 . Vertical orientation of flexbar. Red flex bar forearm pronation . 3 x 15. Red flex bar forearm supination. 3 x 15. Red flex bar forearm supination w/ resisted UD. 3 x 15. 5 Descriptor UEB x 10 minutes. Forwards direction. Seated (avoidance of full elbow extension). 4 Descriptor Passive wrist stretches. Elbow ext w/ forearm supination w/ wrist ext and elbow ext w/ forearm pronation w/ wrist flex. Hold 20 sec. x 2 reps each exercise. Elbow near full ext w/ passive wrist RD/UD. Hold 20 sec. x 2 reps each exercise. - Assessment Assessment of Improvement Has returned to use of TB#3 for execution of home strengthening exercises. Use of wrist brace w/ completion of computer based tasks; (-) need and/or use of wrist brace w/ written based tasks. Completion of passive wrist flex/ext range of motion stretches w/ elbow fully extended; completion of passive wrist RD/UD range of motion w/ use of TT w/ ~ 45 degrees elbow flexion. Execution of therapeutic exercises w/ elbow in 90 degrees and/or in ~ 45 degrees flexion. Overall, good session. Continued outpatient OT is recommended given cont limitations w/ participation in regular exercise routine and work activities. Recommend return to PCP to explore less conservative measures vs referral to upper extremity lubricating specialist if plateau is reached and/or no further progress is made. Home Exercise Program 08/22/23 = DB push-ups vs fisting hands w/ push-ups. 08/01/23 = Trial use of wrist brace w/ written tasks; reduce amount of ROM w/ wall push- ups and avoid locking into extension. 07/25/23 = Provision of TB #2 was provided. Rec for use w/ wrist strengthening exercises. Rec trialing incline/slant board w/ written task completion. 06/12/23 = Wrist exercises w/ elbow extended. 3 x 15 reps. 05/28/23 = Every other day; modified wall push-ups. 3 x 5 reps. 05/21/23 = Complete exercises 3 x a week, or every other day. 05/14/23 = Instructed in use of wall as an alternative to for elbow ext combined w/ forearm supination and wrist/digit ext. Rec 20 to 30 sec hold. Provided w/ TB #3 for home use for wrist strengthening; recommended 3 x 15 reps w/ wrist ext, wrist flex, wrist UD, wrist RD. Instructed in strengthening into wrist UD w/ loop of TB at TT. Discussed potential use of PVC pipe for self-made 'handle'. Instructed in walk-outs w/ use of wall for modified WB; other option to stabilize feet w/ alt UE WB at wall. 05/07/23 = Self-distraction technique. - Plan Therapy Recommendations Advance per Rehabilitation Protocol Modalities As Needed,As Prescribed Additional Types of Modalities Ice/Heat/Contrast Baths/ Ultrasound/Paraffin bath
--- NOTE | 2023-11-14 10:58 | OT.OP.TRT ---
Visit Care Team Role Provider Type Evette Sethi MD Family Provider Non-Staff Primary Care Provider Specialty: Medical Address: [address] [place] [address], [id number] Email: Heriberto Ferrell DO Attending Provider Non-Staff Referring Provider Specialty: Family Practice Address: [address] [place] [address], [id number] Email: Occupational Therapy Treatment Note OT Outpatient Treatment Note - Adult Start: 05/01/23 08:51 Freq: Status: Active Protocol: Document 11/14/23 10:54 AMS (Rec: 11/14/23 10:58 AMS [id number]) OT Outpatient Adult Treatment Note Session Time Visit Start Time 07:37 Visit Stop Time 08:15 Visit Information Visit Number Plan of Care Dates 10/16/23 - 12/19/23 Insurance Information Prime; EVAL ONLY; 72 visits auth Setting Treatment Setting Outpatient Care Visit Type Note Type Treatment Note General Information General Information Elida is a 28 year-old right hand dominant female referred to outpatient OT by PCP secondary to recurrent right lateral epicondylitis. 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 Medical history is significant for removal of adenoids (2005), Lung surgery (2017). - Subjective Identification Type Name Identification Reconciled With Medical Record Observations No new concerns were reported. *Elida is expecting. Elida & her will be relocating to [place] in December 2023. 09/20/23 = Clicking in R elbow reported yesterday when walking w/ active R arm swing. Patient/Caregiver Compliance with Home Good Exercise Program Comment utilizing TB #3 - Objective Objective Measurements Please refer to below for progress towards meeting established OT goals: 08/22/23 = Indication of 1 out of 10 on Pain Assessment Grid relative to right lateral elbow. [facility] Goals 1. Elida will be modified independent with execution of home exercise program utilizing provided written and visual instructions from therapist. 09/05/23 = 75% met 2. Elida will present with increased ability to participate in meaningful activities as evidenced by the followina. Elida will obtain a QuickDASH UE Outcome Measure Score of 15.00 or less. = 75% met; Score = 18.18 ( versus initial 25.00) 2b. Elida will obtain a QuickDASH UE Sports/Performing Arts Module Score of 50.00 or less. 2c. Elida will report ability to execute x 10 push-ups without exacerbation of pain/ discomfort of the right distal UE on 2 separate occasions (2 days per week). 09/05/23 = 25% met; recommended GOALS MET Elida will obtain a QuickDASH UE Work Module Score of 15.00 or less. *MET 08/22/23 = Score = 12.50 - Exercises 6 Descriptor Distal UE strengthening. Red flex bar wrist flex. 3 x 15. Horizontal orientation of flexbar. Red flex bar wrist ext. 3 x 15 . Vertical orientation of flexbar. Red flex bar forearm pronation . 3 x 15. Red flex bar forearm supination. 3 x 15. Red flex bar wrist RD. 3 x 15. N/A 11/14/23 Red flex bar forearm supination w/ resisted UD. 3 x 15. 5 Descriptor UEB x 10 minutes. Forwards direction. Seated (avoidance of full elbow extension). 4 Descriptor Passive wrist stretches. Elbow ext w/ forearm supination w/ wrist ext and elbow ext w/ forearm pronation w/ wrist flex. Hold 20 sec. x 2 reps each exercise. Elbow near full ext w/ passive wrist RD/UD. Hold 20 sec. x 2 reps each exercise. - Assessment Assessment of Improvement No new concerns were reported; increased use of red flex bar for strengthening on this treatment date. Completion of passive wrist flex/ext range of motion stretches w/ elbow fully extended; completion of passive wrist RD/UD range of motion w/ use of TT w/ ~ 45 degrees elbow flexion. Execution of therapeutic exercises w/ elbow in 90 degrees and/or in ~ 45 degrees flexion. Overall, good session. Continued outpatient OT is recommended given cont limitations w/ participation in regular exercise routine and work activities. Recommend return to PCP to explore less conservative measures vs referral to upper extremity compliance specialist if plateau is reached and/or no further progress is made. Home Exercise Program 08/22/23 = DB push-ups vs fisting hands w/ push-ups. 08/01/23 = Trial use of wrist brace w/ written tasks; reduce amount of ROM w/ wall push- ups and avoid locking into extension. 07/25/23 = Provision of TB #2 was provided. Rec for use w/ wrist strengthening exercises. Rec trialing incline/slant board w/ written task completion. 06/12/23 = Wrist exercises w/ elbow extended. 3 x 15 reps. 05/28/23 = Every other day; modified wall push-ups. 3 x 5 reps. 05/21/23 = Complete exercises 3 x a week, or every other day. 05/14/23 = Instructed in use of wall as an alternative to for elbow ext combined w/ forearm supination and wrist/digit ext. Rec 20 to 30 sec hold. Provided w/ TB #3 for home use for wrist strengthening; recommended 3 x 15 reps w/ wrist ext, wrist flex, wrist UD, wrist RD. Instructed in strengthening into wrist UD w/ loop of TB at TT. Discussed potential use of PVC pipe for self-made 'handle'. Instructed in walk-outs w/ use of wall for modified WB; other option to stabilize feet w/ alt UE WB at wall. 05/07/23 = Self-distraction technique. - Plan Therapy Recommendations Advance per Rehabilitation Protocol Modalities As Needed,As Prescribed Additional Types of Modalities Ice/Heat/Contrast Baths/ Ultrasound/Paraffin bath
--- NOTE | 2023-11-28 08:27 | OT.OP.TRT ---
Visit Care Team Role Provider Type Evette Sethi MD Family Provider Non-Staff Primary Care Provider Specialty: Medical Address: [address] [place] [address], [id number] Email: Heriberto Ferrell DO Attending Provider Non-Staff Referring Provider Specialty: Family Practice Address: [address] [place] [address], [id number] Email: Occupational Therapy Treatment Note OT Outpatient Treatment Note - Adult Start: 05/01/23 08:51 Freq: Status: Active Protocol: Document 11/28/23 08:21 AMS (Rec: 11/28/23 08:27 AMS [id number]) OT Outpatient Adult Treatment Note Session Time Visit Start Time 07:32 Visit Stop Time 08:15 Visit Information Visit Number Plan of Care Dates 10/16/23 - 12/19/23 Insurance Information Prime; EVAL ONLY; 72 visits auth Setting Treatment Setting Outpatient Care Visit Type Note Type Treatment Note General Information General Information Elida is a 28 year-old right hand dominant female referred to outpatient OT by PCP secondary to recurrent right lateral epicondylitis. 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 Medical history is significant for removal of adenoids (2006), Lung surgery (2017). - Subjective Identification Type Name Identification Reconciled With Medical Record Observations Denied any discomfort over the past 2 weeks with writing and /or using the computer. Aggravation of R elbow post- moving furniture and using brush to paint cantrell of home; aggravation was alleviated by next morning. Given increased activity the past 2 weeks, has primarily been doing stretches. *Elida is expecting. Elida & her will be relocating to [place] in December 2023. 09/20/23 = Clicking in R elbow reported yesterday when walking w/ active R arm swing. Patient/Caregiver Compliance with Home Good Exercise Program Comment utilizing TB #3 - Objective Objective Measurements Please refer to below for progress towards meeting established OT goals: 08/22/23 = Indication of 1 out of 10 on Pain Assessment Grid relative to right lateral elbow. Care Home Goals 1. Elida will be modified independent with execution of home exercise program utilizing provided written and visual instructions from therapist. 09/05/23 = 75% met 2. Elida will present with increased ability to participate in meaningful activities as evidenced by the followina. Elida will obtain a QuickDASH UE Outcome Measure Score of 15.00 or less. = 75% met; Score = 18.18 ( versus initial 25.00) 2b. Elida will obtain a QuickDASH UE Sports/Performing Arts Module Score of 50.00 or less. 2c. Elida will report ability to execute x 10 push-ups without exacerbation of pain/ discomfort of the right distal UE on 2 separate occasions (2 days per week). 09/05/23 = 25% met; recommended GOALS MET Elida will obtain a QuickDASH UE Work Module Score of 15.00 or less. *MET 08/22/23 = Score = 12.50 - Exercises 6 Descriptor Distal UE strengthening. Red flex bar wrist flex. 3 x 15. Horizontal orientation of flexbar. Red flex bar wrist ext. 3 x 15 . Horizontal orientation of flexbar. Red flex bar forearm pronation . 3 x 15. Red flex bar forearm supination. 3 x 15. Red flex bar wrist UD. 3 x 15. Red flex bar supination plus wrist flex. 2 x 15. N/A 11/14/23 Red flex bar forearm supination w/ resisted UD. 3 x 15. 5 Descriptor UEB x 7 minutes. Forwards direction. UEB x 3 minutes. Backwards direction. Seated ( avoidance of full elbow extension). 4 Descriptor Passive wrist stretches. Elbow ext w/ forearm supination w/ wrist ext and elbow ext w/ forearm pronation w/ wrist flex. Hold 20 sec. x 2 reps each exercise. Elbow near full ext w/ passive wrist RD/UD. Hold 20 sec. x 2 reps each exercise. - Assessment Assessment of Improvement Denial of symptoms with use of computer and/or writing; aggravation of R elbow occurred post-moving furniture and painting cantrell in the home. Report of symptoms being alleviated/not present following morning. Elida is considering investing in personal red theraband flexbar for home use as an alternative to TB for strengthening. Recommend re- assessing at time of next treatment session given that this will be the last session w/ Elida relocating d/t 's job. Recommend return to PCP to explore less conservative measures vs referral to upper extremity secretary specialist if plateau is reached and/or no further progress is made. Home Exercise Program 08/22/23 = DB push-ups vs fisting hands w/ push-ups. 08/01/23 = Trial use of wrist brace w/ written tasks; reduce amount of ROM w/ wall push- ups and avoid locking into extension. 07/25/23 = Provision of TB #2 was provided. Rec for use w/ wrist strengthening exercises. Rec trialing incline/slant board w/ written task completion. 06/12/23 = Wrist exercises w/ elbow extended. 3 x 15 reps. 05/28/23 = Every other day; modified wall push-ups. 3 x 5 reps. 05/21/23 = Complete exercises 3 x a week, or every other day. 05/14/23 = Instructed in use of wall as an alternative to for elbow ext combined w/ forearm supination and wrist/digit ext. Rec 20 to 30 sec hold. Provided w/ TB #3 for home use for wrist strengthening; recommended 3 x 15 reps w/ wrist ext, wrist flex, wrist UD, wrist RD. Instructed in strengthening into wrist UD w/ loop of TB at TT. Discussed potential use of PVC pipe for self-made 'handle'. Instructed in walk-outs w/ use of wall for modified WB; other option to stabilize feet w/ alt UE WB at wall. 05/07/23 = Self-distraction technique. - Plan Therapy Recommendations Advance per Rehabilitation Protocol Modalities As Needed,As Prescribed Additional Types of Modalities Ice/Heat/Contrast Baths/ Ultrasound/Paraffin bath
--- NOTE | 2023-12-12 08:40 | OT.OP.DC ---
Visit Care Team Role Provider Type Evette Sethi MD Family Provider Non-Staff Primary Care Provider Address: [address] [place] [address], [id number] Email: Heriberto Ferrell DO Attending Provider Non-Staff Referring Provider Address: [address] [place] [address], [id number] Email: OT Outpatient OT Outpatient Adult Evaluation Start: 05/01/23 08:51 Freq: Status: Active Protocol: Document 04/30/23 16:00 AMS (Rec: 05/01/23 09:25 AMS [id number]) General Information - Adult Visit Information Plan of Care Dates 04/30/23 - 06/25/23 Insurance Information Prime; EVAL ONLY then 12 visits auth Session Time Visit Start Time 07:30 Visit Stop Time 08:15 Total Visit Minutes 45 Setting Treatment Setting Outpatient Care Visit Type Note Type Initial Evaluation Identification Identification Confirmed Yes Identification Confirmed By Self Goals Job Coaching Goals [facility] Goals 1. Elida will be modified independent with execution of home exercise program utilizing provided written and visual instructions from therapist. 2. Elida will present with increased ability to participate in meaningful activities as evidenced by the followina. Elida will obtain a QuickDASH UE Outcome Measure Score of 15.00 or less. 2b. Elida will obtain a QuickDASH UE Work Module Score of 15.00 or less. 2c. Elida will obtain a QuickDASH UE Sports/Performing Arts Module Score of 50.00 or less. 2d. Elida will report ability to execute x 10 push-ups without exacerbation of pain/ discomfort of the right distal UE on 2 separate occasions (2 days per week). Assessment/Plan Assessment Treatment Assessment Elida is a 27 year-old right hand dominant female referred to outpatient OT by PCP secondary to recurrent right lateral epicondylitis. 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 Medical history is significant for removal of adenoids (2006), Lung surgery (2017). Elida indicated 1 out of 10 on Pain Assessment Grid relative to right lateral epicondyle --> distally to dorsal R wrist. QuickDASH UE Outcome Measure Score = 25.00; QuickDASH UE Outcome Measure Work Module Score = 25.00; QuickDASH UE Outcome Measure Sports/Performing Arts Module Score = 68.75. Elida reported going to Urgent Care in January/ February (2022) d/t inability to move R UE; x-ray was completed and it was negative. She reported being prescribed an anti-inflammatory by Urgent Care and taking the medication for 1 week. She reportedly has iced intermittently; she denied use of tennis elbow band/strap and/or use of kinesiotape. She has a h/o rock climbing, yoga, and completing push-ups or planks (but has ceased these activities d/t aggravation of symptoms). ROM findings were as follows: 0-65 degrees active R wrist flex vs 0-65 degrees active L wrist flex; 0 -65 degrees active R wrist ext vs 0-70 degrees active L wrist ext; 0-20 degrees active R wrist RD vs 0-20 degrees active L wrist RD; 0-30 degrees active R wrist UD vs 0 -25 degrees active L wrist UD. Full bilateral elbow flexion/ extension. MMT testing findings were as follows: 5/5 MMT in all directions bilaterally (wrist flex, ext, RD, UD). Some discomfort reported R dorsal forearm distal to mid forearm --> and proximal approx 3 inches from R wrist w/ resisted wrist extension; did not indicate exacerbation of pain symptoms at R lateral epicondyle w/ supported and/or unsupported R wrist ext. 41.0# R annual campaign manager vs 45 .0# L annual campaign manager w/ dynamometer II testing w/ elbow in 90 degrees flex; 27.0# R annual campaign manager vs 34.0# L annual campaign manager w/ dynamometer II testing w/ elbow in ext. Some tenderness to palpation at R lateral epicondyle; R radial volar wrist tightness. Frequently noted to roll bilateral wrists w/ some crepitus between tasks. Elida would likely benefit from outpatient skilled OT to address pain/discomfort, environmental modifications/ education, and weakness to support Elida's ability to successfully and actively participate in meaningful activities in a variety of environments. Home Exercise Program 04/30/23 = Instructed in passive wrist flex/ext; recommended completing 1 to 2 reps w/ hold of 20 to 30 sec w / elbow in extension. Instructed in passive UD to address radial sided tightness of wrist w/ forearm in supination and elbow in 90 degrees flex based on current comfort. Rec completed 1 to 2 reps w/ hold of 20 to 30 seconds. Plan Length of treatment (weeks) 8 Plan of Care Start Date 04/30/23 Plan of Care End Date 06/25/23 Treatment Frequency Once a Week Therapeutic Contents Active Range of Motion, Adaptive Equipment Education, Client Education,Functional Activities,Home Exercise Program,Joint Protection, Manual Therapy,Education,Self- Care,Stretching/Flexibility Activities,Therapeutic Activities,Therapeutic Exercises,Modalities Modalities As Needed,As Prescribed Additional Types of Modalities US/Heat/Ice/Cold Pack/Contrast baths/Kinesiotape Functional Wrist/Hand Scan Hand Side Sensory Assessment Sensory Profile2 OT Outpatient Treatment Note - Adult Start: 05/01/23 08:51 Freq: Status: Active Protocol: Document 12/12/23 08:28 AMS (Rec: 12/12/23 08:40 AMS [id number]) OT Outpatient Adult Treatment Note Session Time Visit Start Time 07:37 Visit Stop Time 08:15 Visit Information Visit Number Plan of Care Dates 10/16/23 - 12/19/23 Insurance Information Prime; EVAL ONLY; 72 visits auth Setting Treatment Setting Outpatient Care Visit Type Note Type Treatment Note General Information General Information Elida is a 28 year-old right hand dominant female referred to outpatient OT by PCP secondary to recurrent right lateral epicondylitis. 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 Medical history is significant for removal of adenoids (2006), Lung surgery (2017). - Subjective Identification Type Name Identification Reconciled With Medical Record Observations QuickDASH UE Outcome Measure Score = 6.82; QuickDASH UE Work Module Score = 0.00. Did not complete QuickDASH Sports/ Performing Arts Module section on this date. Indication of . 5 on Whole Body Pain Assessment Grid relative to lateral/dorsal elbow. Patient/Caregiver Compliance with Home Good Exercise Program Comment has TB #3 and red flex bar - Objective Objective Measurements Please refer to below for progress towards meeting established OT goals: 08/22/23 = Indication of 1 out of 10 on Pain Assessment Grid relative to right lateral elbow. Job Coaching Goals GOALS MET Elida will be modified independent with execution of home exercise program utilizing provided written and visual instructions from therapist. *MET 12/12/23 Elida will obtain a QuickDASH UE Outcome Measure Score of 15 .00 or less. 08/22/23 = 75% met ; Score = 18.18 (versus initial 25.00) *MET 12/12/23 = 6.82 Elida will obtain a QuickDASH UE Work Module Score of 15.00 or less. *MET 08/22/23 = 12.50; 12/12/23 = 0.00 Elida will report ability to execute x 10 push-ups without exacerbation of pain/ discomfort of the right distal UE on 2 separate occasions (2 days per week). *MET 12/12/23 GOALS D/C Elida will obtain a QuickDASH UE Sports/Performing Arts Module Score of 50.00 or less. - Exercises 6 Descriptor Distal UE strengthening. Red flex bar wrist flex. 3 x 15. Horizontal orientation of flexbar. Elbows near full ext. Red flex bar wrist ext. 3 x 15 . Horizontal orientation of flexbar. Elbows near full ext. Red flex bar forearm pronation . 3 x 15. Elbows near full ext . Red flex bar forearm supination. 3 x 15. Elbows near full ext. N/A 12/12/23 Red flex bar wrist UD. 3 x 15. Red flex bar supination plus wrist flex. 2 x 15. N/A 11/14/23 Red flex bar forearm supination w/ resisted UD. 3 x 15. 5 Descriptor UEB x 5 minutes. Forwards direction. UEB x 5 minutes. Backwards direction. Seated ( avoidance of full elbow extension). 4 Descriptor Passive wrist stretches. Elbow ext w/ forearm supination w/ wrist ext and elbow ext w/ forearm pronation w/ wrist flex. Hold 20 sec. x 2 reps each exercise. Elbow near full ext w/ passive wrist RD/UD. Hold 20 sec. x 2 reps each exercise. - Assessment Assessment of Improvement Elida has met all established outpatient goals; she is not using wrist brace for work based TT tasks, although, still using it for execution of exercise routine. There were no c/o exacerbation of symptoms w/ resisted wrist flex/wrist ext at elbow. She demonstrated 39.0# of force w/ R annual campaign manager w/ elbow in flex w/ dynamometer II strength test and 33.0# of force w/ elbow in ext w/ dynamometer II strength test w/ no c/o pain/ discomfort and/or exacerbation of symptoms. She is not icing and/or taking pain medications for the elbow. She is independent with execution of home exercise program w/ stretches, strengthening exercises (with use of TB#3 or red flex bar) w/ recommendation to extend elbows (near end range of elbow ext) and/or hold at end range of motion to increase difficulty w/ use of red flex bar. Rec d/c from outpatient OT at this time. Home Exercise Program 08/22/23 = DB push-ups vs fisting hands w/ push-ups. 08/01/23 = Trial use of wrist brace w/ written tasks; reduce amount of ROM w/ wall push- ups and avoid locking into extension. 07/25/23 = Provision of TB #2 was provided. Rec for use w/ wrist strengthening exercises. Rec trialing incline/slant board w/ written task completion. 06/12/23 = Wrist exercises w/ elbow extended. 3 x 15 reps. 05/28/23 = Every other day; modified wall push-ups. 3 x 5 reps. 05/21/23 = Complete exercises 3 x a week, or every other day. 05/14/23 = Instructed in use of wall as an alternative to for elbow ext combined w/ forearm supination and wrist/digit ext. Rec 20 to 30 sec hold. Provided w/ TB #3 for home use for wrist strengthening; recommended 3 x 15 reps w/ wrist ext, wrist flex, wrist UD, wrist RD. Instructed in strengthening into wrist UD w/ loop of TB at TT. Discussed potential use of PVC pipe for self-made 'handle'. Instructed in walk-outs w/ use of wall for modified WB; other option to stabilize feet w/ alt UE WB at wall. 05/07/23 = Self-distraction technique. - Plan Therapy Recommendations Discharge from Occupational Therapy
== END 2023-12-18 10:04 | disposition home or self-care (01) ==
LOC: OT 07:30
PROVIDERS: Family Provider Student in an Organized Health Care Education/Training Program; PCP Student in an Organized Health Care Education/Training Program; Referring Provider Student in an Organized Health Care Education/Training Program; Visit Provider Student in an Organized Health Care Education/Training Program
DX: M77.11 Lateral epicondylitis, right elbow (principal); R53.1 Weakness
CPT/HCPCS: 97035; 97110; 97140; 97165; 97530